=== PATIENT | female | born 1995 | race Caucasian/White ===

== ENCOUNTER 2016-09-22 19:09 | Emergency (ER) | payer MEDICAID, OTHER ==
[~2016-09-22] VITALS: Ht 165.1 cm; Wt 74.8 kg
[2016-09-22] MEDS ORDERED: IBUPROFEN 800 MG (MOTRIN) TAB PO ONE (19:30)
[2016-09-22] MEDS ORDERED: CYCLOBENZAPRINE 10 MG (FLEXERIL) TAB PO SCH (19:30)
--- NOTE | 2016-09-22 19:34 | ED Back Pain ---
General Chief Complaint: Back Problems Stated Complaint: BACK PAIN Source of Information: Patient Exam Limitations: No Limitations History of Present Illness Time Seen by Provider: 19:32 Initial Comments To ER with low back pain. This began about a day ago when she was getting up off the couch. She felt a sharp sudden pain in the right low back. The pain has since spread all the way across to the lower left side of her back. She states intermittently it does radiate down both of her legs. She has not had any fevers or chills or loss of bowel or bladder control or loss of sensation of her genitals. She's never had this pain before. She does also report urinary burning and nausea. Location: Lumbar Spine, Paraspinous Muscles Severity: Moderate Associated Symptoms: No muscle spasms, No fever, No weakness, tingling in legs/ feet, lower back pain Allergies and Home Medications Allergies Coded Allergies: No Known Drug Allergies (Unverified , 09/22/16) Constitutional: see HPI, No chills, No fever EENTM: see HPI Respiratory: no symptoms reported Cardiovascular: no symptoms reported Gastrointestinal: nausea Genitourinary: no symptoms reported Musculoskeletal: see HPI, back pain Skin: no symptoms reported Psychiatric/Neurological: No Symptoms Reported Past Detxhcb-Eyadyc-Uoslnn Hx Patient Social History Alcohol Use: Occasionally Uses Recreational Drug Use: No Smoking Status: Never a Smoker Recent Foreign Travel: No Contact w/Someone Who Travel: No Recent Hopitalizations: No Surgeries Surgeries: Adenoidectomy, Tonsillectomy Physical Exam Vital Signs Vital Sign - Last 12Hours 09/22/16 19:23 Temp 98.3 Pulse 103 Resp 20 B/P (MAP) 144/92 Pulse Ox 99 O2 Delivery Room Air Capillary Refill : General Appearance: No Apparent Distress, WD/WN HEENT: PERRL/EOMI, TMs Normal Neck: Full Range of Motion, Normal Inspection Cardiovascular: Regular Rate, Rhythm, Normal Peripheral Pulses Respiratory: Normal Breath Sounds, No Accessory Muscle Use, No Respiratory Distress Gastrointestinal: Normal Bowel Sounds, Non Tender, Soft Extremity: Normal Capillary Refill, Normal Inspection Neurologic/Psychiatric: Alert, Oriented x3, No Motor/Sensory Deficits Skin: Normal Color, Warm/Dry Progress/Results/Core Measures Results/Orders Lab Results Laboratory Tests Test 09/22/16 19:31 Range/Units Urine Color YELLOW Urine Clarity VERY CLOUDY H Urine pH 6 5-9 Urine Specific [place] 1.020 1.016-1.022 Urine Protein 1+ H NEGATIVE Urine Glucose (UA) NEGATIVE NEGATIVE Urine Ketones NEGATIVE NEGATIVE Urine Nitrite NEGATIVE NEGATIVE Urine Bilirubin NEGATIVE NEGATIVE Urine Urobilinogen 1 NORMAL MG/DL Urine Leukocyte Esterase 3+ H NEGATIVE Urine RBC (Auto) NEGATIVE NEGATIVE Urine RBC NONE /HPF Urine WBC 10-25 H /HPF Urine Squamous Epithelial Cells 10-25 H /HPF Urine Crystals NONE /LPF Urine Bacteria MODERATE H /HPF Urine Casts NONE /LPF Urine Mucus SMALL H /LPF Urine Culture Indicated YES My Orders Orders - HUSSAIN CULVER APRN Urine Bedside (09/22/16 19:30) Ua Culture If Indicated (09/22/16 19:30) Ibuprofen Tablet (Motrin Tablet) (09/22/16 19:30) Cyclobenzaprine Tablet (Flexeril Tablet) (09/22/16 19:30) Urine Culture (09/22/16 19:31) Medications Given in ED Current Medications Medications Dose Ordered Sig/Kyle Route Start Time Stop Time Status Last Admin Dose Admin Ibuprofen 800 mg ONCE ONCE PO 09/22/16 19:30 09/22/16 19:32 DC 09/22/16 19:38 800 MG Vital Signs/I&O Vital Sign - Last 12Hours 09/22/16 19:23 Temp 98.3 Pulse 103 Resp 20 B/P (MAP) 144/92 Pulse Ox 99 O2 Delivery Room Air Departure Impression Impression: Primary Impression: Back pain Additional Impression: Urinary tract infection Disposition: 01 HOME, SELF-CARE Condition: Stable Departure-Patient Inst. Decision time for Depature: 19:59 Referrals: [facility] (PCP) Primary Care Physician Patient Instructions: Low Back Pain (DC), Urinary Tract Infection, Adult (DC) Add. Discharge Instructions: 1. Return to ER for any concerns such as fever or vomiting 2. Follow-up with your doctor next week 3. Antibiotics as directed. Tylenol and Motrin for pain All discharge instructions reviewed with patient and/or family. Voiced understanding. Scripts Sulfamethoxazole/Trimethoprim (Bactrim Ds Tablet) 1 Each Tablet 1 EACH PO BID, #10 TAB Prov: HUSSAIN CULVER APRN 09/22/16 HUSSAIN CULVER APRN Sep 22, 2016 19:34
[2016-09-22 19:41] LABS: BILIRUBIN,URINE NEGATIVE (NEGATIVE); KETONES,URINE NEGATIVE (NEGATIVE); LEUKOCYTE ESTERASE ,URINE 3+ (NEGATIVE); NITRITE,URINE NEGATIVE (NEGATIVE); PH,URINE 6 (5-9); PROTEIN,URINE 1+ (NEGATIVE); UROBILINOGEN,URINE 1 MG/DL (NORMAL)
[2016-09-22] MEDS ORDERED: CEPHALEXIN 250 MG (KEFLEX) CAP PO ONE ×2 (19:59→20:15)
[2016-09-22] MEDS ORDERED: TRIM/SULFAMETH 160/800 (SEPTRA DS) TAB PO ONE (20:00)
[2016-09-22] MEDS ORDERED: SULF1TAB35 PO (20:00)
[2016-09-22 20:05] VITALS: BP 0/0
[2016-09-22] MEDS ORDERED: CEPH-507 PO (20:05)
== END 2016-09-22 20:04 | disposition home or self-care (01) ==
LOC: ER 19:12
DX: M54.5 Low back pain (principal); N39.0 Urinary tract infection, site not specified; Z90.89 Acquired absence of other organs
CPT/HCPCS: 81000; 84703; 87088; 99283

== ENCOUNTER 2016-12-23 12:41 | Emergency (ER) | payer MEDICAID ==
[~2016-12-23] VITALS: Ht 165.1 cm; Wt 77.1 kg
[~2016-12-23 12:41] MED LIST: CEPH-507 PO; SULF1TAB35 PO
--- OUTSIDE RECORDS SUMMARY | 2016-12-23 12:48 | XMS REPORT | Continuity of Care Document ---
Author Author [employer] Organization [facility] Address Unknown Phone Unavailable Care Team Providers Care [employer] Name Role Phone [employer] Unavailable Unavailable Problems Problem Status Onset Date Classification Date Reported Comments Source Intestinal infection due to other organism, not elsewhere classified 07/10/2014 Diagnosis 07/14/2014 [facility] Acute upper respiratory infections of unspecified site 07/02/2014 Diagnosis 07/06/2014 [facility] Cough 07/02/2014 Diagnosis 07/06/2014 [facility] No data available for this section Problem 07/14/2014 [facility] Medications Medication Details Route Status Patient Instructions Ordering Provider Order Date Source No Known Medications No known medications Active [facility] Allergies, Adverse Reactions, Alerts Substance Category Reaction Severity Reaction type Status Date Reported Comments Source sulfa drugs Assertion Drug allergy [facility] Care Immunizations Immunization Date Given Site Status Last Updated Comments Source No data available for this section No data available for this section [facility] Results Vital Signs Encounters Location Location Details Encounter Type Encounter Number Reason For Visit Attending Provider ADM Date DC Date Status Source [facility] [id number] Jean Garcia 07/02/2014 07/03/2014 [facility] [id number] Sonya Quinteros 07/10/2014 07/11/2014 [facility] Procedures Procedure Code Date Perfomer Comments Source No data available for this section [facility] none [facility] Plan of Care Social History Assessment and Plan Family History Value Date Source Advance Directives Order Name Results Value Date Source
--- OUTSIDE RECORDS SUMMARY | 2016-12-23 12:49 | XMS REPORT | Continuity of Care Document ---
Author Author [facility] Address Unknown Phone Unavailable Allergies Medications Problems Date Dx Coded Attending Type Code Diagnosis Diagnosed By 11/03/2013 MARCOS BLACK APRN V70.5 EXAM - PRE-EMPLOYMENT Procedures Results Encounters ACCT No. Visit Date/Time Discharge Status Pt. Type Provider Facility Loc./Unit Complaint [id number] 11/03/2013 09:56:00 11/03/2013 23: 59:59 CLS Outpatient MARCOS BLACK APRN
[2016-12-23] MEDS ORDERED: PREN-53 PO (13:20)
[2016-12-23 13:51] LABS: BILIRUBIN,URINE NEGATIVE (NEGATIVE); KETONES,URINE NEGATIVE (NEGATIVE); LEUKOCYTE ESTERASE ,URINE 3+ (NEGATIVE); NITRITE,URINE NEGATIVE (NEGATIVE); PH,URINE 5 (5-9); PROTEIN,URINE 1+ (NEGATIVE); UROBILINOGEN,URINE NORMAL (NORMAL)
[2016-12-23 14:02] LABS: SQUAMOUS EPITHELIAL CELL,UR 25-50 /HPF; WBC,URINE >100 /HPF
[2016-12-23] MEDS ORDERED: ACETAMINOPHEN 325 MG TABLET/CAPLET (TYLENOL) PO STA (14:32)
--- NOTE | 2016-12-23 15:22 | ED Abdominal Pain ---
General Chief Complaint: -Female Stated Complaint: CRAMPING/SPOTTING/APPROX 9 WKS PG Nursing Triage Note: c/o bilateral lower abdomen cramping and spotting since yesterday. Sepsis Screen: No Definite Risk History of Present Illness Time Seen By Provider: 13:45 Initial Comments 21-year-old female reports to be approximately 12 weeks gestation. Her LMP was October 03, 2016. She reports being sexually active yesterday evening , since then she has had some spotting. It is not enough to require wearing a pad. She mainly notices when using the restroom to urinate or have a bowel movement. She reports mild lower abdominal cramping. She has taken no medications to this point. This is her first . She has not seen her OB doctor yet, she is taking vitamins. She does report spotting in early October as well she was not evaluated for this. Timing/Duration: 1-2 Days Severity/Quality: Mild Location: Suprapubic Radiation: No Radiation Activities at Onset: None Associated Symptoms: Denies Symptoms Allergies and Home Medications Allergies Coded Allergies: No Known Drug Allergies (Unverified , 09/22/16) Home Medications Nitrofurantoin Monohyd/M-Cryst 100 Mg Capsule, 1 TAB PO BID, #10 Ref 0 Prescribed by: TAPAN LADD on 12/23/16 1549 [id number]/Iron Fumarate/FA/Dss 1 Each Tablet, 1 EACH PO, (Reported) Review of Systems Constitutional: no symptoms reported, see HPI Gastrointestinal: See HPI, Abdominal Pain Genitourinary: See HPI, Hematuria All Other Systems Reviewed Negative Unless Noted: Yes Past Txbazqr-Xwzlzx-Yvjkmp Hx Patient Social History Alcohol Use: Denies Use Recreational Drug Use: No Smoking Status: Never a Smoker Recent Foreign Travel: No Contact w/Someone Who Travel: No Recent Infectious Disease Expo: No Recent Hopitalizations: No Physical Abuse: No Sexual Abuse: No Surgeries History of Surgeries: Yes Surgeries: Adenoidectomy, Tonsillectomy Respiratory History of Respiratory Disorde: No Cardiovascular History of Cardiac Disorders: No Neurological History of Neurological Disord: No Reproductive System : Yes Expected Date of Delivery: July 11, 2017 Last Menstrual Period: Oct 04, 2016 Hx : 1 Hx Para: 0 Hx Total # of Abortions (Spona: 0 Genitourinary History of Genitourinary Disor: No Gastrointestinal History of Gastrointestinal Di: No Musculoskeletal History of Musculoskeletal Dis: No Endocrine History of Endocrine Disorders: No HEENT History of HEENT Disorders: No Cancer History of Cancer: No Psychosocial History of Psychiatric Problem: No Suicide Risk Score: 0 Integumentary History of Skin or Integumenta: No Reviewed Nursing Assessment Reviewed/Agree w Nursing PMH: Yes Physical Exam Vital Signs VS - Last 72 Hours, by Label 12/23/16 12/23/16 13:17 15:55 Temp 98.0 98.0 Pulse 110 110 Resp 18 18 B/P (MAP) 125/74 Pulse Ox 98 98 Capillary Refill : Less Than 3 Seconds General Appearance: WD/WN, no apparent distress Neck: non-tender, full range of motion, supple Respiratory: chest non-tender, lungs clear, normal breath sounds Cardiovascular: normal peripheral pulses, regular rate, rhythm, no edema, no JVD Gastrointestinal: normal bowel sounds, soft, No distended (mild tenderness, suprapubic), No guarding, No rebound, tenderness Extremities: normal range of motion, non-tender, normal inspection, normal capillary refill Back: normal inspection, no CVA tenderness, no vertebral tenderness Neurologic/Psychiatric: no motor/sensory deficits, alert, normal mood/affect, oriented x 3 Skin: normal color, warm/dry Progress/Results/Core Measures Results/Orders Lab Results Laboratory Tests Test 12/23/16 13:40 Range/Units Urine Color YELLOW Urine Clarity VERY CLOUDY H Urine pH 5 5-9 Urine Specific [place] 1.020 1.016-1.022 Urine Protein 1+ H NEGATIVE Urine Glucose (UA) NEGATIVE NEGATIVE Urine Ketones NEGATIVE NEGATIVE Urine Nitrite NEGATIVE NEGATIVE Urine Bilirubin NEGATIVE NEGATIVE Urine Urobilinogen NORMAL NORMAL MG/DL Urine Leukocyte Esterase 3+ H NEGATIVE Urine RBC (Auto) 5+ H NEGATIVE Urine RBC 5-10 H /HPF Urine WBC >100 H /HPF Urine Squamous Epithelial Cells 25-50 H /HPF Urine Crystals PRESENT H /LPF Urine Amorphous Sediment MOD ALBERT URATES H /LPF Urine Bacteria FEW H /HPF Urine Casts NONE /LPF Urine Mucus NEGATIVE /LPF Urine Culture Indicated YES My Orders Orders - TAPAN LADD Ua Culture If Indicated (12/23/16 13:42) Urine Bedside (12/23/16 13:42) Urine Culture (12/23/16 13:40) Acetaminophen Tablet/Caplet (Tylenol T (12/23/16 14:32) Us Ob Single Fetus<14 [id number] (12/23/16 14:32) Vital Signs/I&O Vital Sign - Last 12Hours 12/23/16 12/23/16 13:17 15:55 Temp 98.0 98.0 Pulse 110 110 Resp 18 18 B/P (MAP) 125/74 Pulse Ox 98 98 Blood Pressure Mean: 91 Point of Care Testing Urine -Bedside: Positive Progress Note : Time: 13:45 Progress Note Initial evaluation, urine positive. 1430 recommended OB ultrasound and Tylenol 650 milligrams orally. 1515 OB ultrasound results discussed with the patient. Recommendation for one week repeat ultrasound were discussed, she has an initial OB evaluation in one week Dr. Moreno at [facility]. Stressed the importance to have vaginal rest until her appointment with Dr. Moreno, she verbalized understanding of this. Diagnostic Imaging Diagonstic Imaging: Ultrasound Plain Films/CT/US/NM/MRI: abdomen Comments NAME: KAREN ROSS [facility] REC#: [id number] PHYSICIAN: TAPAN LADD CC: TAPAN LADD; EMIL IRWIN MD Page 2 of 2 RADIOLOGY REPORT VIA [place], [place] CC: TAPAN LADD; EMIL IRWIN MD Page 1 of 2 RADIOLOGY REPORT NAME: KAREN ROSS [facility] REC#: [id number] PT STATUS: DEP ER : 1995 PHYSICIAN: TAPAN LADD ADMIT DATE: 12/23/16/ER Signed Date of Exam: 12/23/16 US OB SINGLE FETUS<14 [id number] First trimester OB ultrasound. INDICATION: Bleeding/cramping. FINDINGS: There is a an intrauterine with a yolk sac seen within gestational sac with sac diameter of 1 cm. This corresponds to 5 weeks and 5 days of gestation. NORIS would correspond with 08/20/2017. The sac is located along the left side of the endometrium. Additional images were performed to specifically evaluate the thickness of the myometrium around the gestational sac and it appears to be more than 5 mm. The sac does appear to be within the endometrium and does not appear to be . This is believed to be slightly eccentric normal within the endometrial cavity with no evidence of cornual ectopic . The left ovary is seen with 1.8 cm dominant corpus luteum cysts. IMPRESSION: Single intrauterine with a yolk sac seen. Although the sac appears to be within the left side of the endometrium, additional imaging evaluation demonstrates at least 5 mm of myometrium around it and the sac is inseparable from the endometrium. It is felt to be located within the upper left aspect of the endometrium and not a cornual ectopic . A followup exam in one week is suggested to reevaluate the position of the and to ensure normal progression and development of an embryo. Dictated by: Dictated on workstation # [id number] Dict: 12/23/16 1508 Trans: 12/23/16 1720 Interpreted by: EMIL IRWIN MD Electronically signed by: EMIL IRWIN MD 12/23/16 1720 Reviewed: Discussed w/Radiologist Departure Impression Impression: Primary Impression: Vaginal bleeding before 22 weeks gestation Additional Impressions: Intrauterine Urinary tract infection Qualified Codes: N30.01 - Acute cystitis with hematuria Disposition: HOME, SELF-CARE Condition: Stable Departure-Patient Inst. Decision time for Depature: 15:15 Referrals: [facility] (PCP) Primary Care Physician WILFRED MORENO DO (Family) Primary Care Physician Patient Instructions: Bleeding With (DC) Add. Discharge Instructions: Complete vaginal rest. Activity as tolerated. Use pad in her underwear, no tampons. Tylenol 650 mg every 6 hours as needed for pain/cramping. Return to emergency department for increased vaginal bleeding with pain not relieved with Tylenol, fever greater than 101, or new problems. Keep appointment with Dr. Moreno for December 30. Follow-up at [facility] for new problems. All discharge instructions reviewed with patient and/or family. Voiced understanding. Scripts Nitrofurantoin Monohyd/M-Cryst (Macrobid 100 mg Capsule) 100 Mg Capsule 1 TAB PO BID, #10 CAP 0 Refills Prov: TAPAN LADD 12/23/16 Copy Copies To 1: WILFRED MORENO DO Copies To 2: MICHAEL TINSLEY MD, AMY ARNP Dec 23, 2016 15:22
[2016-12-23] MEDS ORDERED: NITR-65 PO (15:49)
[2016-12-23 15:55] VITALS: BP 125/74
--- NOTE | 2016-12-23 15:57 | Diagnostic Imaging Report ---
First trimester OB ultrasound. INDICATION: Bleeding/cramping. FINDINGS: There is a an intrauterine with a yolk sac seen within gestational sac with sac diameter of 1 cm. This corresponds to 5 weeks and 5 days of gestation. NORIS would correspond with 08/20/2017. The sac is located along the left side of the endometrium. Additional images were performed to specifically evaluate the thickness of the myometrium around the gestational sac and it appears to be more than 5 mm. The sac does appear to be within the endometrium and does not appear to be . This is believed to be slightly eccentric normal within the endometrial cavity with no evidence of cornual ectopic . The left ovary is seen with 1.8 cm dominant corpus luteum cysts. IMPRESSION: Single intrauterine with a yolk sac seen. Although the sac appears to be within the left side of the endometrium, additional imaging evaluation demonstrates at least 5 mm of myometrium around it and the sac is inseparable from the endometrium. It is felt to be located within the upper left aspect of the endometrium and not a cornual ectopic . A followup exam in one week is suggested to reevaluate the position of the and to ensure normal progression and development of an embryo. Dictated by: Dictated on workstation # [id number]
== END 2016-12-23 15:53 | disposition home or self-care (01) ==
LOC: EDUNIT# 12:41 → ER 12:44
DX: O20.9 Hemorrhage in early pregnancy, unspecified (principal); O23.41 Unspecified infection of urinary tract in pregnancy, first trimester; Z90.89 Acquired absence of other organs; Z3A.12 12 weeks gestation of pregnancy
CPT/HCPCS: 76801; 81000; 84703; 87088; 99282

== ENCOUNTER → 2017-01-11 | Outpatient (CLI) | payer MEDICAID ==
[~2017-01-11] MED LIST changes: +CLIN300C11 PO; +NITR-65 PO; +PREN-53 PO
--- NOTE | 2017-01-11 10:36 | Diagnostic Imaging Report ---
First trimester OB ultrasound. INDICATION: Dating] femoral normal Comparison 12/23/16. FINDINGS: There is a normal-appearing single intrauterine . An embryo is seen with cardiac activity at 174 beats per minute. The crown-rump length is at 8 weeks and 3 days. NORIS is 08/20/17. The is in normal position with adequate myometrium appears to be surrounding the gestational sac. The ovaries are from obscured by bowel gas. IMPRESSION: Live single intrauterine . Dictated by: Dictated on workstation # [id number]
== END ==
LOC: RAD 09:57
PROVIDERS: ATTEND Family Medicine
DX: Z36.87 Encounter for antenatal screening for uncertain dates (principal); Z3A.08 8 weeks gestation of pregnancy
CPT/HCPCS: 76801

== ENCOUNTER → 2017-03-28 | Outpatient (CLI) | payer MEDICAID ==
--- NOTE | 2017-03-28 11:28 | Diagnostic Imaging Report ---
INDICATION: Size and dates. TECHNIQUE: Multiple real-time grayscale images were obtained over the gravid uterus. COMPARISON: 01/11/2017. FINDINGS: There is a single living intrauterine in a variable presentation. The biometry correlates with gestational age of 19 weeks 5 days. The anatomical survey is unremarkable. The heart rate is 140 beats per minute and regular. The placenta is fundal on left. There is no previa or abruption. Cervical length is 4.5 cm. Biometrical measurements are as follows: Biparietal 4.78 cm, age 20 weeks 4 days. Head circumference 16.58 cm, age 19 weeks 2 days. Abdominal circumference 14.21 cm, age 19 weeks 4 days. Femur length 2.96 cm, age 19 weeks 1 days. Sonographic estimate age: 19 weeks 5 days. Sonographic estimated date of delivery: 08/17/2017. Estimated Weight: 290 gm (+/- 42 gm). LMP percentile: 52%. heart rate: 140 beats per minute. number: 1 of 1. IMPRESSION: Single living intrauterine with sonographically estimated gestational age of 19 weeks 5 days with an estimated date of confinement of August 17, 2017. Unremarkable anatomical survey. Dictated by: Dictated on workstation # [id number]
== END ==
LOC: RAD 10:00
PROVIDERS: ATTEND Family Medicine
DX: Z34.92 Encounter for supervision of normal pregnancy, unspecified, second trimester (principal); Z3A.19 19 weeks gestation of pregnancy
CPT/HCPCS: 76805

== ENCOUNTER → 2017-06-23 | Outpatient (CLI) | payer SELFPAY ==
[~2017-06-23] MED LIST changes: +CETI-343 PO; +FERR325T18 PO; +IBUP-1773 PO
[2017-06-23 08:36] LABS: BASOPHILS % (AUTO) 0 % (0-10); EOSINOPHILS # (AUTO) 0.2 10^3/uL (0.0-0.3); EOSINOPHILS % (AUTO) 1 % (0-10); HEMATOCRIT 34 % (35-52); HEMOGLOBIN 11.3 G/DL (11.5-16.0); LYMPHOCYTES # (AUTO) 3.2 X 10^3 (1.0-4.0); LYMPHOCYTES % (AUTO) 20 % (12-44); MEAN CORPUSCULAR HEMOGLOBIN 27 PG (25-34); MEAN CORPUSCULAR HGB CONC 33 G/DL (32-36); MEAN CORPUSCULAR VOLUME 82 FL (80-99); MEAN PLATELET VOLUME 8.4 FL (7.4-10.4); MONOCYTES # (AUTO) 1.2 X 10^3 (0.0-1.0); MONOCYTES % (AUTO) 8 % (0-12); NEUTROPHILS # (AUTO) 11.2 X 10^3 (1.8-7.8); NEUTROPHILS % (AUTO) 71 % (42-75); PLATELET COUNT 346 10^3/uL (130-400); RED BLOOD COUNT 4.12 10^6/uL (4.35-5.85); RED CELL DISTRIBUTION WIDTH 14.1 % (10.0-14.5); WHITE BLOOD COUNT 15.9 10^3/uL (4.3-11.0)
[2017-06-23 09:24] LABS: BAND NEUTROPHILS 5 %; BASOPHILS % (MANUAL) 1 %; EOSINOPHILS % (MANUAL) 1 %; LYMPHOCYTES % (MANUAL) 28 %; METAMYELOCYTES % 1 %; MONOCYTES % (MANUAL) 5 %; MYELOCYTES % 1 %; NEUTROPHILS % (MANUAL) 58 %; RBC MORPH NORMAL
== END ==
LOC: LAB 07:11
PROVIDERS: ATTEND Family Medicine
DX: O99.810 Abnormal glucose complicating pregnancy (principal)
CPT/HCPCS: 36415; 82951; 82952; 82962; 85007; 85027

== ENCOUNTER 2017-08-16 15:50 | Inpatient (IN) | payer MEDICAID ==
[~2017-08-16] VITALS: Ht 160 cm; Wt 98.5 kg
[2017-08-16] VITALS (11 sets, daily range): BP systolic 122–151; BP diastolic 78–100
[~2017-08-16 15:50] MED LIST changes: -CETI-343 PO; -FERR325T18 PO; -IBUP-1773 PO
--- OUTSIDE RECORDS SUMMARY | 2017-08-16 16:11 | XMS REPORT ---
Author Author JASON JONES [facility] Address [address] [place] [address] Care Team Providers Care Chef Under Name Role Phone JONESMAAMEA Unavailable PROBLEMS Type Condition ICD9-CM Code CJI98-OE Code Onset Dates Condition Status SNOMED Code Problem Other infections with a predominantly sexual mode of transmission complicating , first trimester O98.311 Active 669668507 Problem Chlamydial infection A74.9 Active 437254673 Problem Abnormal glucose tolerance affecting , antepartum O99.810 Active 44389105 Problem Anxiety disorder, unspecified F41.9 Active 167109182 Problem Rh negative state in antepartum period O09.899 Active 368143093 ALLERGIES Substance Reaction Event Type Date Status Sulfa (sulfonamide Antibiotics) Unknown Non Drug Allergy Nov, Active ENCOUNTERS Encounter Location Date Diagnosis [facility] [id number] [place] [address] 77372- 3139 Jul, [facility] [id number] [place] [address] 30135- 4953 Jul, [facility] [address] [address] 9005 Jul, [facility] [id number] [place] [address] 68904- 7017 Jul, [facility] [id number] [place] [address] 08698- 2651 June, [facility] [id number] [place] [address] 58237- 3976 June, 34 weeks gestation of Z3A.34 and care in third trimester Z34.93 [facility] [id number] [place] [address] 64193- 8324 May, care in third trimester Z34.93 ; Encounter for immunization Z23 and 31 weeks gestation of Z3A.31 [place] [id number] [place] [address] 42061- 3577 27 May, 2017 [place] [place] [id number] [place] [address] 33819- 3290 May, Abnormal glucose tolerance affecting , antepartum O99.810 [facility] [id number] [place] [address] 22393- 5998 May, Rh negative state in antepartum period O09.899 [facility] [id number] [place] [address] 23086- 4962 17 May, 2017 Normal in second trimester Z34.92 [facility] [id number] [place] [address] 33027- 1998 May, [facility] [id number] [place] [address] 27049- 0402 May, Normal in second trimester Z34.92 ; Rh negative state in antepartum period O09.899 and 29 weeks gestation of Z3A.29 [place] [address] [place] [address] 63366- 7636 04 May, 2017 [place] [address] [place] [address] 14022- 4971 May, Burning with urination R30.0 and Urinary tract infection in mother during third trimester of O23.43 [place] [address] [place] [address] 56529- 3640 Apr, care in second trimester Z34.92 ; Diabetes mellitus screening Z13.1 and 25 weeks gestation of Z3A.25 [facility] [address] [place] [address] 54900- 7213 16 Mar, 2017 Normal in second trimester Z34.92 ; Chlamydial infection A74.9 and 21 weeks gestation of Z3A.21 [place] [address] [address]- 5233 Feb, Normal in second trimester Z34.92 ; Chlamydial infection A74.9 ; 17 weeks gestation of Z3A.17 ; Unspecified abdominal pain R10.9 and Other specified related conditions, unspecified trimester O26.899 [facility] [address] [address]- 9194 18 Feb, 2017 Encounter for dental examination and cleaning without abnormal findings Z01.20 [facility] [id number] [address]- 6170 04 Feb, 2017 [place] [id number] [place] [address] 18419- 6347 Feb, [facility] [id number] [place] [address] 42953- 4378 Jan, [place] [id number] [place] [address] 16457- 3407 Jan, Vaginal candidiasis B37.3 [facility] [id number] [address]- 4083 Jan, [place] [id number] [place] [address] 88854- 4005 Jan, Normal in second trimester Z34.92 and 13 weeks gestation of Z3A.13 [facility] [id number] [address]- 5152 Jan, Screening for deficiency anemia Z13.0 [facility] [address] [address]- 1720 Dec, [place] [id number] [place] [address] 26154- 3925 Dec, [facility] [address] [address]- 8007 Dec, [place] [id number] [place] [address] 16608- 6201 Dec, Normal , first Z34.00 and 7 weeks gestation of Z3A.01 [facility] [id number] [place] [address] 09588- 8966 Nov, Encounter for test, result unknown Z32.00 [facility] [id number] [place] [address] 71794- 8634 Nov, [facility] [address] 03247- 8174 June, Positive test Z32.01 [facility] [id number] [place] [address] 32520 -4373 Apr, Allergic rhinitis J30.9 [facility] [id number] [place] [address] 67014- 2587 17 Mar, 2015 Depressed F32.9 and Grief F43.20 [facility] [address] 87334- 9624 Mar, Depressed F32.9 and Grief F43.20 [facility] [id number] [place] [address] 46126- 7086 Mar, Adjustment disorder with depressed mood F43.21 and Anxiety disorder, unspecified F41.9 [facility] [id number] [place] [address] 96945- 2044 May, [facility] [id number] [place] [address] 43093- 8052 May, [facility] [id number] [place] [address] 34086- 4613 Feb, [facility] [address] 66086- 8590 Feb, [facility] [id number] [place] [address] 99387- 7313 Oct, [facility] [address] 59661- 5526 Oct, IMMUNIZATIONS No Known Immunizations SOCIAL HISTORY Never Assessed REASON FOR VISIT OB HX PLAN OF CARE VITAL SIGNS MEDICATIONS Medication Instructions Dosage Frequency Start Date End Date Duration Status CVS 28-0.8 MG as directed June, Active RESULTS No Results PROCEDURES No Known procedures INSTRUCTIONS MEDICATIONS ADMINISTERED No Known Medications MEDICAL (GENERAL) HISTORY Type Description Date Medical History Dave mountain spotted fever treated in 2012 Medical History got bit by brown pam spider/ as child Medical History NORIS is August 21, 2107 Surgical History tonsilectomy and adenoidectomy childhood Hospitalization History Went to ER after finance and was put in behavioral health for 24 hours 03/07/15 Hospitalization History brown recluse bite 02/28/2011
--- OUTSIDE RECORDS SUMMARY | 2017-08-16 16:11 | XMS REPORT ---
Author Author HYACINTH CLAY [facility] Address [address] [place] [address] Care Team Providers Care Talent Acquisition Associate Name Role Phone CLAY CLAROS Unavailable PROBLEMS Type Condition ICD9-CM Code [id number] Code Onset Dates Condition Status SNOMED Code Problem Other infections with a predominantly sexual mode of transmission complicating , first trimester O98.311 Active 594844098 Problem Chlamydial infection A74.9 Active 613780163 Problem Abnormal glucose tolerance affecting , antepartum O99.810 Active 02899015 Problem Anxiety disorder, unspecified F41.9 Active 331892984 Problem Rh negative state in antepartum period O09.899 Active 712331782 ALLERGIES Substance Reaction Event Type Date Status Sulfa (sulfonamide Antibiotics) Unknown Non Drug Allergy Jan, Active ENCOUNTERS Encounter Location Date Diagnosis [place] [address] [place] [address] 76346- 0382 Jul, [place] [id number] [place] [address] 27263- 6737 Jul, [place] [id number] [place] [address] 67420- 6993 08 Jul, 2017 Third trimester Z34.93 and 37 weeks gestation of Z3A.37 [place] [address] [place] [address] 53112- 2576 Jul, screening for streptococcus B Z36.85 ; care, first in third trimester Z34.03 and 36 weeks gestation of Z3A.36 [place] [id number] [place] [address] 88022- 7093 June, [place] [id number] [place] [address] 86177- 8551 June, [facility] [address] [address]- 0803 June, 34 weeks gestation of Z3A.34 and care in third trimester Z34.93 [facility] [address] [address]- 6872 May, [place] [id number] [place] [address] 17443- 7880 May, care in third trimester Z34.93 ; Encounter for immunization Z23 and 31 weeks gestation of Z3A.31 [place] [id number] [place] [address] 65615- 4341 May, Abnormal glucose tolerance affecting , antepartum O99.810 [place] [address], [place] [address]- 4352 May, Rh negative state in antepartum period O09.899 [place] [id number] [place] [address] 83866- 3835 May, Normal in second trimester Z34.92 [place] [address] [place] [address] 29510- 2714 May, [place] [address] [address]- 7955 May, Normal in second trimester Z34.92 ; Rh negative state in antepartum period O09.899 and 29 weeks gestation of Z3A.29 [place] [address], [place] [address]- 9428 May, [place] [id number] [place] [address] 85023- 6390 May, Burning with urination R30.0 and Urinary tract infection in mother during third trimester of O23.43 [place] [address] [address]- 9297 Apr, [place] [id number] [place] [address] 15225- 2081 16 Apr, 2017 care in second trimester Z34.92 ; Diabetes mellitus screening Z13.1 and 25 weeks gestation of Z3A.25 [place] [id number] [place] [address] 79530- 4668 16 Mar, 2017 Normal in second trimester Z34.92 ; Chlamydial infection A74.9 and 21 weeks gestation of Z3A.21 [place] [id number] [place] [address] 02316- 9101 19 Feb, 2017 Normal in second trimester Z34.92 ; Chlamydial infection A74.9 ; 17 weeks gestation of Z3A.17 ; Unspecified abdominal pain R10.9 and Other specified related conditions, unspecified trimester O26.899 [place] [id number] [place] [address] 42607- 5452 18 Feb, 2017 Encounter for dental examination and cleaning without abnormal findings Z01.20 [place] [id number] [place] [address] 93252- 4594 04 Feb, 2017 [place] [id number] [place] [address] 49598- 8399 Feb, [place] [id number] [place] [address] 09159- 4719 Jan, [place] [id number] [place] [address] 32090- 9983 Jan, Vaginal candidiasis B37.3 [place] [id number] [place] [address] 38632- 8307 Jan, [place] [id number] [place] [address] 48009- 8078 Jan, Normal in second trimester Z34.92 and 13 weeks gestation of Z3A.13 [place] [id number] [place] [address] 37498- 9769 Jan, Screening for deficiency anemia Z13.0 [place] [address], [place] [address]- 9760 Dec, [facility] [id number] [place] [address] 33897- 8448 Dec, [facility] [address], [place] [address]- 4886 Dec, [facility] [id number] [place] [address] 12188- 2739 Dec, Normal , first Z34.00 and 7 weeks gestation of Z3A.01 [facility] [id number] [place] [address] 99660- 2832 Nov, Encounter for test, result unknown Z32.00 [facility] [id number] [place] [address] 85029- 6567 Nov, [facility] [id number] [place] [address] 30216- 5704 June, Positive test Z32.01 [facility] [address] [place] [address] 58041 -6787 Apr, Allergic rhinitis J30.9 [facility] [id number] [place] [address] 10815- 8794 17 Mar, 2015 Depressed F32.9 and Grief F43.20 [facility] [id number] [place] [address] 00468- 2643 Mar, Depressed F32.9 and Grief F43.20 [facility] [address] [place] [address] 99313- 0304 Mar, Adjustment disorder with depressed mood F43.21 and Anxiety disorder, unspecified F41.9 [facility] [address] [address]- 5582 May, [facility] [id number] [place] [address] 07313- 4259 May, [facility] [address] [facility] [id number] [address]- 7555 Feb, [facility] [address] [facility] [id number], [place] [address]- 4381 Feb, [facility] [address] [facility] [id number], [place] [address]- 6623 Oct, [facility] [address] [facility] [id number], [place] [address]- 3553 Oct, IMMUNIZATIONS No Known Immunizations SOCIAL HISTORY Never Assessed REASON FOR VISIT OB f/u-4 wk--tcuppettRN PLAN OF CARE Activity Details Follow Up 4 Weeks Reason: VITAL SIGNS Height 65 in 2017-02-15 Weight 183.5 lbs 2017-02-15 Temperature 97.6 degrees Fahrenheit 2017-02-15 Heart Rate 80 bpm 2017-02-15 Respiratory Rate 18 2017-02-15 BMI 30.536 kg/m2 2017-02-15 Blood pressure systolic 120 mmHg 2017-02-15 Blood pressure diastolic 82 mmHg 2017-02-15 MEDICATIONS Medication Instructions Dosage Frequency Start Date End Date Duration Status CVS 28-0.8 MG as directed June, Active RESULTS Name Result Date Reference Range UA OB DIP (IN HOUSE) 2017-02-15 Glucose negative Protein negative PROCEDURES Procedure Date Ordered Result Body Site URINE-NO MICRO Feb 15, 2017 INSTRUCTIONS MEDICATIONS ADMINISTERED No Known Medications MEDICAL (GENERAL) HISTORY Type Description Date Medical History Dave mountain spotted fever treated in 2012 Medical History got bit by brown recluse spider/ as child Medical History NORIS is August 21, 2107 Surgical History tonsilectomy and adenoidectomy childhood Hospitalization History Went to ER after finance and was put in behavioral health for 24 hours 03/07/15 Hospitalization History brown recluse bite 02/28/2011
--- OUTSIDE RECORDS SUMMARY | 2017-08-16 16:11 | XMS REPORT ---
Author Author HYACINTH CLAY [facility] Address [address] [place] [address] Care Team Providers Care Flag Maker Name Role Phone HYACINTHRADHIKA AGUILARY Unavailable PROBLEMS Type Condition ICD9-CM Code HDA32-DH Code Onset Dates Condition Status SNOMED Code Problem Other infections with a predominantly sexual mode of transmission complicating , first trimester O98.311 Active 745947870 Problem Chlamydial infection A74.9 Active 504820510 Problem Abnormal glucose tolerance affecting , antepartum O99.810 Active 17405836 Problem Anxiety disorder, unspecified F41.9 Active 382314056 Problem Rh negative state in antepartum period O09.899 Active 794846156 ALLERGIES No Information ENCOUNTERS Encounter Location Date Diagnosis [place] [id number] [place] [address] 39374- 3883 Jul, [place] [id number] [place] [address] 12045- 2000 Jul, [place] [id number] [place] [address] 09120- 2971 Jul, Third trimester Z34.93 and 37 weeks gestation of Z3A.37 [place] [id number] [place] [address] 87511- 2619 Jul, screening for streptococcus B Z36.85 ; care, first in third trimester Z34.03 and 36 weeks gestation of Z3A.36 [place] [id number] [place] [address] 02087- 9846 June, [place] [id number] [place] [address] 20241- 9094 June, [place] [address] [place] [address]- 6069 June, 34 weeks gestation of Z3A.34 and care in third trimester Z34.93 [place] [id number] [place] [address] 51318- 5111 May, [place] [id number] [place] [address] 67188- 0729 May, care in third trimester Z34.93 ; Encounter for immunization Z23 and 31 weeks gestation of Z3A.31 [place] [id number] [place] [address] 54360- 3411 May, Abnormal glucose tolerance affecting , antepartum O99.810 [place] [id number] [place] [address] 75614- 3623 May, Rh negative state in antepartum period O09.899 [place] [id number] [place] [address] 12477- 5714 May, Normal in second trimester Z34.92 [place] [id number] [place] [address] 51701- 5451 May, [place] [id number] [place] [address] 15864- 7001 May, Normal in second trimester Z34.92 ; Rh negative state in antepartum period O09.899 and 29 weeks gestation of Z3A.29 [place] [id number] [place] [address] 36080- 3405 May, [place] [id number] [place] [address] 98240- 9014 May, Burning with urination R30.0 and Urinary tract infection in mother during third trimester of O23.43 [place] [address], [place] [address]- 0450 Apr, [place] [id number] [place] [address] 40548- 4552 Apr, care in second trimester Z34.92 ; Diabetes mellitus screening Z13.1 and 25 weeks gestation of Z3A.25 [place] [id number] [place] [address] 94229- 0747 16 Mar, 2017 Normal in second trimester Z34.92 ; Chlamydial infection A74.9 and 21 weeks gestation of Z3A.21 [place] [address] 84726- 5968 19 Feb, 2017 Normal in second trimester Z34.92 ; Chlamydial infection A74.9 ; 17 weeks gestation of Z3A.17 ; Unspecified abdominal pain R10.9 and Other specified related conditions, unspecified trimester O26.899 [place] [address] 37865- 9188 18 Feb, 2017 Encounter for dental examination and cleaning without abnormal findings Z01.20 [place] [address] 61805- 9290 04 Feb, 2017 [place] [address] 75504- 6306 Feb, [place] [address] 95178- 3030 Jan, [place] [id number] [place] [address] 14275- 1976 Jan, Vaginal candidiasis B37.3 [place] [address] 64413- 9917 Jan, [place] [id number] [place] [address] 17660- 9976 Jan, Normal in second trimester Z34.92 and 13 weeks gestation of Z3A.13 [place] [id number] [place] [address] 82490- 6831 Jan, Screening for deficiency anemia Z13.[address] 62673- 8735 Dec, [facility] [id number] [place] [address] 26001- 2290 Dec, [facility] [id number] [place] [address] 16104- 2648 Dec, [facility] [address] 22010- 3692 Dec, Normal , first Z34.00 and 7 weeks gestation of Z3A.01 [facility] [address] 75108- 9883 Nov, Encounter for test, result unknown Z32.00 [place] [address] 87094- 0963 Nov, [place] [address] 09735- 6321 June, Positive test Z32.01 [facility] [address] 50265 -9542 Apr, Allergic rhinitis J30.9 [place] [address] 97565- 1079 Mar, Depressed F32.9 and Grief F43.[address] 05513- 6055 Mar, Depressed F32.9 and Grief F43.20 [place] [address] 40687- 1561 Mar, Adjustment disorder with depressed mood F43.21 and Anxiety disorder, unspecified F41.9 [place] [address] 31026- 6776 May, [place] [address] 81935- 6622 May, [place] [address] 08415- 2546 Feb, [facility] [address] [facility] [id number] [place] [address]- 2546 Feb, [facility] [address] [facility] [id number], [place] [address]- 2546 Oct, [facility] [address] [facility] [id number], [place] [address]- 2546 Oct, IMMUNIZATIONS No Known Immunizations SOCIAL HISTORY Never Assessed REASON FOR VISIT PLAN OF CARE VITAL SIGNS MEDICATIONS Unknown Medications RESULTS No Results PROCEDURES No Known procedures [...]
--- OUTSIDE RECORDS SUMMARY | 2017-08-16 16:11 | XMS REPORT ---
Author Author FRANCISANDRIYPIO Organization [facility] Address [address] [place] [address] Care Team Providers Care Food Processing Scientist Name Role Phone BLANCOPIO Holland Unavailable PROBLEMS Type Condition ICD9-CM Code TJJ00-HH Code Onset Dates Condition Status SNOMED Code Problem Other infections with a predominantly sexual mode of transmission complicating , first trimester O98.311 Active 814958488 Problem Chlamydial infection A74.9 Active 787108573 Problem Abnormal glucose tolerance affecting , antepartum O99.810 Active 70588334 Problem Anxiety disorder, unspecified F41.9 Active 334826908 Problem Rh negative state in antepartum period O09.899 Active 885044782 ALLERGIES Substance Reaction Event Type Date Status Sulfa (sulfonamide Antibiotics) Unknown Non Drug Allergy Jan, Active ENCOUNTERS Encounter Location Date Diagnosis [place] [id number] [place] [address] 60066- 4258 Jul, [place] [id number] [place] [address] 71121- 0862 Jul, [place] [id number] [place] [address] 96372- 7530 Jul, Third trimester Z34.93 and 37 weeks gestation of Z3A.37 [place] [id number] [place] [address] 43141- 7605 Jul, screening for streptococcus B Z36.85 ; care, first in third trimester Z34.03 and 36 weeks gestation of Z3A.36 [facility] [id number] [place] [address] 05329- 4197 June, [place] [id number] [place] [address] 51543- 2425 June, [place] [address] [address] 1639 June, 34 weeks gestation of Z3A.34 and care in third trimester Z34.93 [place] [address] [address]- 7717 May, care in third trimester Z34.93 ; Encounter for immunization Z23 and 31 weeks gestation of Z3A.31 [place] [id number] [place] [address] 95447- 9232 May, [place] [id number] [place] [address] 29507- 6825 May, Abnormal glucose tolerance affecting , antepartum O99.810 [place] [id number] [place] [address] 39064- 4251 May, Rh negative state in antepartum period O09.899 [place] [id number] [place] [address] 39964- 1977 May, Normal in second trimester Z34.92 [place] [id number] [place] [address] 91307- 7846 May, [place] [address], [place] [address]- 7965 May, Normal in second trimester Z34.92 ; Rh negative state in antepartum period O09.899 and 29 weeks gestation of Z3A.29 [place] [address], [place] [address]- 5762 May, [place] [id number] [place] [address] 92901- 1715 May, Burning with urination R30.0 and Urinary tract infection in mother during third trimester of O23.43 [place] [address] [address]- 0492 Apr, [place] [address] [place] [address] 8958 16 Apr, 2017 care in second trimester Z34.92 ; Diabetes mellitus screening Z13.1 and 25 weeks gestation of Z3A.25 [place] [id number] [place] [address] 44010- 3587 16 Mar, 2017 Normal in second trimester Z34.92 ; Chlamydial infection A74.9 and 21 weeks gestation of Z3A.21 [place] [id number] [place] [address] 50061- 6682 19 Feb, 2017 Normal in second trimester Z34.92 ; Chlamydial infection A74.9 ; 17 weeks gestation of Z3A.17 ; Unspecified abdominal pain R10.9 and Other specified related conditions, unspecified trimester O26.899 [place] [id number] [place] [address] 64203- 3936 18 Feb, 2017 Encounter for dental examination and cleaning without abnormal findings Z01.20 [place] [id number] [place] [address] 50230- 5905 04 Feb, 2017 [place] [id number] [place] [address] 93157- 3973 Feb, [place] [id number] [place] [address] 94901- 4881 Jan, [place] [id number] [place] [address] 95399- 1215 Jan, Vaginal candidiasis B37.3 [place] [id number] [place] [address] 03727- 7760 Jan, [place] [id number] [place] [address] 26249- 8123 Jan, Normal in second trimester Z34.92 and 13 weeks gestation of Z3A.13 [place] [id number] [place] [address] 77985- 0785 Jan, Screening for deficiency anemia Z13.0 [place] [address], [place] [address]- 4678 Dec, [facility] [id number] [place] [address] 62426- 5331 Dec, [facility] [id number] [place] [address] 57782- 6194 Dec, [facility] [id number] [place] [address] 37428- 4912 Dec, Normal , first Z34.00 and 7 weeks gestation of Z3A.01 [facility] [id number] [place] [address] 79176- 8642 Nov, Encounter for test, result unknown Z32.00 [facility] [id number] [place] [address] 95019- 0557 Nov, [facility] [id number] [place] [address] 64999- 2070 June, Positive test Z32.01 [facility] [id number] [place] [address] 48215 -7288 Apr, Allergic rhinitis J30.9 [facility] [id number] [place] [address] 43459- 4013 Mar, Depressed F32.9 and Grief F43.20 [place] [id number] [place] [address] 85552- 4745 Mar, Depressed F32.9 and Grief F43.20 [facility] [id number] [place] [address] 20507- 0852 Mar, Adjustment disorder with depressed mood F43.21 and Anxiety disorder, unspecified F41.9 [facility] [address] [place] [address] 66555- 4889 May, [facility] [id number] [place] [address] 99341- 7384 May, [place] [address] [facility] [id number] [address]- 2180 Feb, [facility] [address] [facility] [id number], [place] [address]- 3060 Feb, [facility] [address] [facility] [id number], [place] [address]- 4409 Oct, [facility] [address] [facility] [id number], [place] [address]- 2546 Oct, IMMUNIZATIONS No Known Immunizations SOCIAL HISTORY Never Assessed REASON FOR VISIT Yeast infection: itching, tenderness over past 3-4 days, denies discharge rasheed erazo PLAN OF CARE Activity Details Follow Up prn Reason: VITAL SIGNS Height 65 in 2017-02-25 Weight 182.5 lbs 2017-02-25 Temperature 97.6 degrees Fahrenheit 2017-02-25 Heart Rate 90 bpm 2017-02-25 Respiratory Rate 20 2017-02-25 BMI 30.37 kg/m2 2017-02-25 Blood pressure systolic 116 mmHg 2017-02-25 Blood pressure diastolic 66 mmHg 2017-02-25 MEDICATIONS Medication Instructions Dosage Frequency Start Date End Date Duration Status CVS 28-0.8 MG as directed June, Active Miconazole 7 2 % Vaginal Once a day at bedtime 1 application at bedtime Jan, Feb, 7 day(s) Active RESULTS No Results PROCEDURES No Known [...]
--- OUTSIDE RECORDS SUMMARY | 2017-08-16 16:11 | XMS REPORT ---
Author Author HYACINTH CLAY [facility] Address [address] [place] [address] Care Team Providers Care Lead Designer Name Role Phone HYACINTHRADHIKA AGUILARY Unavailable PROBLEMS Type Condition ICD9-CM Code BGO20-UY Code Onset Dates Condition Status SNOMED Code Problem Other infections with a predominantly sexual mode of transmission complicating , first trimester O98.311 Active 487234162 Problem Chlamydial infection A74.9 Active 346630496 Problem Abnormal glucose tolerance affecting , antepartum O99.810 Active 40225296 Problem Anxiety disorder, unspecified F41.9 Active 093289923 Problem Rh negative state in antepartum period O09.899 Active 910631365 ALLERGIES No Information ENCOUNTERS Encounter Location Date Diagnosis [place] [id number] [place] [address] 64015- 6204 Jul, [place] [id number] [place] [address] 52669- 3497 Jul, [place] [id number] [place] [address] 92567- 6885 Jul, Third trimester Z34.93 and 37 weeks gestation of Z3A.37 [place] [id number] [place] [address] 60146- 2711 Jul, screening for streptococcus B Z36.85 ; care, first in third trimester Z34.03 and 36 weeks gestation of Z3A.36 [place] [id number] [place] [address] 13832- 6637 June, [place] [id number] [place] [address] 40698- 2172 June, [place] [address] [place] [address]- 4862 June, 34 weeks gestation of Z3A.34 and care in third trimester Z34.93 [place] [id number] [place] [address] 92817- 3232 May, [place] [id number] [place] [address] 66673- 2563 May, care in third trimester Z34.93 ; Encounter for immunization Z23 and 31 weeks gestation of Z3A.31 [place] [id number] [place] [address] 10148- 7905 May, Abnormal glucose tolerance affecting , antepartum O99.810 [place] [id number] [place] [address] 75406- 2142 May, Rh negative state in antepartum period O09.899 [place] [id number] [place] [address] 84689- 8311 May, Normal in second trimester Z34.92 [place] [id number] [place] [address] 43872- 2265 May, [place] [id number] [place] [address] 17876- 6527 May, Normal in second trimester Z34.92 ; Rh negative state in antepartum period O09.899 and 29 weeks gestation of Z3A.29 [place] [id number] [place] [address] 21832- 2533 May, [place] [id number] [place] [address] 88318- 2969 May, Burning with urination R30.0 and Urinary tract infection in mother during third trimester of O23.43 [place] [address] [address]- 6113 Apr, [place] [id number] [place] [address] 28338- 3202 Apr, care in second trimester Z34.92 ; Diabetes mellitus screening Z13.1 and 25 weeks gestation of Z3A.25 [place] [id number] [place] [address] 37512- 4595 16 Mar, 2017 Normal in second trimester Z34.92 ; Chlamydial infection A74.9 and 21 weeks gestation of Z3A.21 [place] [address] 44618- 4108 19 Feb, 2017 Normal in second trimester Z34.92 ; Chlamydial infection A74.9 ; 17 weeks gestation of Z3A.17 ; Unspecified abdominal pain R10.9 and Other specified related conditions, unspecified trimester O26.899 [place] [address] 69587- 5801 18 Feb, 2017 Encounter for dental examination and cleaning without abnormal findings Z01.20 [place] [address] 91537- 3729 04 Feb, 2017 [place] [address] 36136- 7287 Feb, [place] [address] 04120- 4326 Jan, [place] [id number] [place] [address] 92125- 5044 Jan, Vaginal candidiasis B37.3 [place] [address] 96706- 3729 Jan, [place] [id number] [place] [address] 72991- 2372 Jan, Normal in second trimester Z34.92 and 13 weeks gestation of Z3A.13 [place] [id number] [place] [address] 66934- 0835 Jan, Screening for deficiency anemia Z13.[address] 81330- 5156 Dec, [facility] [id number] [place] [address] 14386- 2937 Dec, [facility] [id number] [place] [address] 13812- 4033 Dec, [facility] [address] 28306- 9751 Dec, Normal , first Z34.00 and 7 weeks gestation of Z3A.01 [facility] [address] 09249- 4659 Nov, Encounter for test, result unknown Z32.00 [place] [address] 21014- 4951 Nov, [place] [address] 16793- 8363 June, Positive test Z32.01 [facility] [address] 46911 -5586 Apr, Allergic rhinitis J30.9 [place] [address] 07329- 7496 Mar, Depressed F32.9 and Grief F43.[address] 61066- 8022 Mar, Depressed F32.9 and Grief F43.20 [place] [address] 37542- 2510 Mar, Adjustment disorder with depressed mood F43.21 and Anxiety disorder, unspecified F41.9 [place] [address] 67666- 0732 May, [place] [address] 39936- 6734 May, [place] [address] 71518- 2546 Feb, [facility] [address] [facility] [id number] [place] [address]- 2546 Feb, [facility] [address] [facility] [id number] [address]- 2546 Oct, [facility] [address] [facility] [id number] [address]- 2546 Oct, IMMUNIZATIONS No Known Immunizations SOCIAL HISTORY Never Assessed REASON FOR VISIT Requests return call PLAN OF CARE VITAL SIGNS MEDICATIONS Unknown [...]
--- OUTSIDE RECORDS SUMMARY | 2017-08-16 16:12 | XMS REPORT ---
Author Author BERNARDO POP Organization [facility] Address [address] [place] [address] Care Team Providers Care Exterior Door Installer Name Role Phone BERNARDO POP Unavailable PROBLEMS Type Condition ICD9-CM Code GAJ86-QM Code Onset Dates Condition Status SNOMED Code Problem Other infections with a predominantly sexual mode of transmission complicating , first trimester O98.311 Active 891674947 Problem Chlamydial infection A74.9 Active 857785590 Problem Abnormal glucose tolerance affecting , antepartum O99.810 Active 84710309 Problem Anxiety disorder, unspecified F41.9 Active 463471321 Problem Rh negative state in antepartum period O09.899 Active 569451569 ALLERGIES No Information ENCOUNTERS Encounter Location Date Diagnosis [place] [address] [place] [address] 29209- 0213 Jul, [place] [id number] [place] [address] 63395- 5316 Jul, [place] [address] [place] [address] 82568- 2230 Jul, Third trimester Z34.93 and 37 weeks gestation of Z3A.37 [place] [id number] [place] [address] 24943- 0142 Jul, screening for streptococcus B Z36.85 ; care, first in third trimester Z34.03 and 36 weeks gestation of Z3A.36 [place] [id number] [place] [address] 68333- 0895 June, [place] [id number] [place] [address] 00259- 9396 June, [place] [id number] [place] [address] 27706- 6662 June, 34 weeks gestation of Z3A.34 and care in third trimester Z34.93 [place] [id number] [place] [address] 86814- 7215 May, [place] [address] [place] [address] 56742- 3756 May, care in third trimester Z34.93 ; Encounter for immunization Z23 and 31 weeks gestation of Z3A.31 [place] [address] [place] [address] 81765- 4273 May, Abnormal glucose tolerance affecting , antepartum O99.810 [place] [id number] [place] [address] 54346- 8599 May, Rh negative state in antepartum period O09.899 [place] [id number] [place] [address] 68230- 9986 May, Normal in second trimester Z34.92 [place] [id number] [place] [address] 49998- 9552 May, [place] [id number] [place] [address] 07789- 2792 May, Normal in second trimester Z34.92 ; Rh negative state in antepartum period O09.899 and 29 weeks gestation of Z3A.29 [place] [address] [place] [address] 38453- 4496 May, [place] [id number] [place] [address] 80088- 7426 May, Burning with urination R30.0 and Urinary tract infection in mother during third trimester of O23.43 [place] [address], [place] [address]- 0222 Apr, [place] [id number] [place] [address] 11425- 8957 Apr, care in second trimester Z34.92 ; Diabetes mellitus screening Z13.1 and 25 weeks gestation of Z3A.25 [place] [id number] [place] [address] 19179- 4453 16 Mar, 2017 Normal in second trimester Z34.92 ; Chlamydial infection A74.9 and 21 weeks gestation of Z3A.[address] 23172- 2422 Feb, Normal in second trimester Z34.92 ; Chlamydial infection A74.9 ; 17 weeks gestation of Z3A.17 ; Unspecified abdominal pain R10.9 and Other specified related conditions, unspecified trimester O26.899 [place] [id number] [place] [address] 06108- 4433 18 Feb, 2017 Encounter for dental examination and cleaning without abnormal findings Z01.[address] 64311- 1294 Feb, [place] [address] 98308- 2545 Feb, [place] [address] 25341- 8138 Jan, [place] [id number] [place] [address] 92007- 1756 Jan, Vaginal candidiasis B37.3 [place] [id number] [place] [address] 26326- 4081 Jan, [place] [address] 33513- 9330 Jan, Normal in second trimester Z34.92 and 13 weeks gestation of Z3A.13 [place] [address] 22404- 4996 Jan, Screening for deficiency anemia Z13.[address] 13949- 7952 Dec, [facility] [id number] [place] [address] 43354- 9587 Dec, [facility] [address] 49997- 3409 Dec, [facility] [id number] [place] [address] 01165- 9801 Dec, Normal , first Z34.00 and 7 weeks gestation of Z3A.01 [facility] [address] 91874- 5391 Nov, Encounter for test, result unknown Z32.00 [place] [address] 35010- 5778 Nov, [place] [address] 93383- 3350 June, Positive test Z32.01 [facility] [id number] [place] [address] 98827 -8913 Apr, Allergic rhinitis J30.9 [place] [address] 87147- 2285 17 Mar, 2015 Depressed F32.9 and Grief F43.20 [place] [address] 76697- 5787 Mar, Depressed F32.9 and Grief F43.20 [place] [address] 41685- 3343 Mar, Adjustment disorder with depressed mood F43.21 and Anxiety disorder, unspecified F41.9 [place] [address] 27847- 2639 May, [place] [address] 56137- 8636 May, [place] [address] 33090- 5834 Feb, [facility] [address] [facility] [id number] [place] [address]- 2546 Feb, [facility] [address] [facility] [id number] [place] [address]- 2546 Oct, [facility] [address] [facility] [id number] [place] [address]- 2546 Oct, IMMUNIZATIONS No Known Immunizations SOCIAL HISTORY Never Assessed REASON FOR VISIT PLAN OF CARE VITAL SIGNS MEDICATIONS Unknown Medications RESULTS No Results PROCEDURES No Known procedures INSTRUCTIONS MEDICATIONS ADMINISTERED No Known Medications MEDICAL (GENERAL) HISTORY Type Description Date Medical History Dave mountain spotted fever treated in 2012 Medical History got bit by agapito orozco spider/ as child Medical History NORIS is [birth year] Surgical History tonsilectomy and adenoidectomy childhood Hospitalization History Went to ER after finance and was put in behavioral health for 24 hours 03/07/15 Hospitalization History brown recluse bite 02/28/2011
--- OUTSIDE RECORDS SUMMARY | 2017-08-16 16:12 | XMS REPORT | Continuity of Care Document ---
Author Author [facility] Address Unknown Phone Unavailable Allergies Active Description Code Type Severity Reaction Onset Reported/Identified Relationship to Patient Clinical Status Yes No Known Drug Allergies [id number] Drug Allergy Unknown N/A 09/22/2016 Medications There is no data. Problems Date Dx Coded Attending Type Code Diagnosis Diagnosed By 11/03/2013 MARCOS BLACK APRN V70.5 EXAM - PRE-EMPLOYMENT 09/22/2016 HUSSAIN CULVER APRN Ot M54.5 LOW BACK PAIN 09/22/2016 HUSSAIN CULVER APRN Ot N39.0 URINARY TRACT INFECTION, SITE NOT SPECIF 09/22/2016 HUSSAIN CULVER APRN Ot Z90.89 ACQUIRED ABSENCE OF OTHER ORGANS 12/23/2016 WILBERTO, TAPAN SKIVER HEEL TAP Ot O20.9 HEMORRHAGE IN EARLY , UNSPECIFI 12/23/2016 WILBERTO, TAPAN SKIVER HEEL TAP Ot O23.41 UNSP INFCT OF URINARY TRACT IN 12/23/2016 WILBERTO, TAPAN SKIVER HEEL TAP Ot R10.32 LEFT LOWER QUADRANT PAIN 12/23/2016 WILBERTO, TAPAN SKIVER HEEL TAP Ot Z3A.12 12 WEEKS GESTATION OF 12/23/2016 WILBERTO, TAPAN SKIVER HEEL TAP Ot Z90.89 ACQUIRED ABSENCE OF OTHER ORGANS 12/27/2016 WILBERTO, TAPAN SKIVER HEEL TAP Ot O20.9 HEMORRHAGE IN EARLY , UNSPECIFI 12/27/2016 WILBERTO, TAPAN SKIVER HEEL TAP Ot O23.41 UNSP INFCT OF URINARY TRACT IN 12/27/2016 WILBERTO, TAPAN SKIVER HEEL TAP Ot R10.32 LEFT LOWER QUADRANT PAIN 12/27/2016 WILBERTO, TAPAN SKIVER HEEL TAP Ot Z3A.12 12 WEEKS GESTATION OF 12/27/2016 WILBERTO TAPAN SKIVER HEEL TAP Ot Z90.89 ACQUIRED ABSENCE OF OTHER ORGANS 01/12/2017 CLAY CLAROS MD Ot Z36.87 ENCOUNTER FOR SCREENING FOR UN 01/12/2017 CLAY CLAROS MD Ot Z3A.08 8 WEEKS GESTATION OF 02/08/2017 CLAY CLAROS MD Ot Z36.87 ENCOUNTER FOR SCREENING FOR UN 02/08/2017 CLAY CLAROS MD Ot Z3A.08 8 WEEKS GESTATION OF 03/24/2017 CLAY CLAROS MD Ot Z36.87 ENCOUNTER FOR SCREENING FOR UN 03/24/2017 CLAY CLAROS MD Ot Z3A.08 8 WEEKS GESTATION OF 03/29/2017 CLAY CLAROS MD Ot Z34.92 ENCNTR FOR SUPRVSN OF NORMAL PREG, UNSP, 03/29/2017 CLAY CLAROS MD Ot Z3A.19 19 WEEKS GESTATION OF 04/03/2017 CLAY CLAROS MD Ot Z34.92 ENCNTR FOR SUPRVSN OF NORMAL PREG, UNSP, 04/03/2017 CLAY CLAROS MD Ot Z3A.19 19 WEEKS GESTATION OF 04/12/2017 CLAY CLAROS MD Ot Z34.92 ENCNTR FOR SUPRVSN OF NORMAL PREG, UNSP, 04/12/2017 CLAY CLAROS MD Ot Z3A.19 19 WEEKS GESTATION OF 06/23/2017 CLAY CLAROS MD Ot Z36.87 ENCOUNTER FOR SCREENING FOR UN 06/23/2017 CLAY CLAROS MD Ot Z3A.08 8 WEEKS GESTATION OF 06/23/2017 CLAY CLAROS MD Ot Z34.92 ENCNTR FOR SUPRVSN OF NORMAL PREG, UNSP, 06/23/2017 CLAY CLAROS MD Ot Z3A.19 19 WEEKS GESTATION OF 06/24/2017 CLAY CLAROS MD Ot O99.810 ABNORMAL GLUCOSE COMPLICATING 06/24/2017 CLAY CLAROS MD Ot O99.810 ABNORMAL GLUCOSE COMPLICATING Procedures There is no data. Results Test Result Range hCG,Beta Subunit, Qnt, Serum - 07/05/16 13:26 hCG,Beta Subunit,Qnt,Serum <1 mIU/mL Bacterial urine culture - 09/22/16 19:31 URINE CULTURE RESULTS <10,000/ML NRG Complete urinalysis with reflex to culture - 12/23/16 13:40 Urine color determination YELLOW NRG Urine clarity determination VERY CLOUDY NRG Urine pH measurement by test strip 5 5-9 Specific gravity of urine by test strip 1.020 1.016- 1.022 Urine protein assay by test strip, semi-quantitative 1+ NEGATIVE Urine glucose detection by automated test strip NEGATIVE NEGATIVE Erythrocytes detection in urine sediment by light microscopy 5+ NEGATIVE Urine ketones detection by automated test strip NEGATIVE NEGATIVE Urine nitrite detection by test strip NEGATIVE NEGATIVE Urine total bilirubin detection by test strip NEGATIVE NEGATIVE Urine urobilinogen measurement by automated test strip (mass/volume) NORMAL NORMAL Urine leukocyte esterase detection by dipstick 3+ NEGATIVE Automated urine sediment erythrocyte count by microscopy (number/high power field) [HPF] NRG Automated urine sediment leukocyte count by microscopy (number/high power field ) > [HPF] NRG Bacteria detection in urine sediment by light microscopy FEW NRG Squamous epithelial cells detection in urine sediment by light microscopy 25-50 NRG Crystals detection in urine sediment by light microscopy PRESENT NRG Casts detection in urine sediment by light microscopy NONE NRG Mucus detection in urine sediment by light microscopy NEGATIVE NRG Complete urinalysis with reflex to culture YES NRG Amorphous sediment detection in urine sediment by light microscopy MOD ALBERT URATES NRG Bacterial urine culture - 12/23/16 13:40 URINE CULTURE RESULTS <10,000/ML NRG CULTURE, URINE - 01/05/17 15:49 CULTURE, URINE, ROUTINE SEE NOTE NRG CULTURE, GENITAL - 01/05/17 15:49 CULTURE, GENITAL SEE NOTE NRG SUREPATH PAP RFX HPV mRNA E6/E7 - 01/05/17 15:58 CLINICAL INFORMATION: NRG LMP: NRG PREV. PAP: 10/03/16 NML NRG PREV. BX: NONE NRG SOURCE: Cervix NRG STATEMENT OF ADEQUACY: NRG INTERPRETATION/RESULT: NRG BASIC ACOUSTIC ANALYST: NRG GENERAL CATEGORIZATION: NRG COMMENT: NRG PATHOLOGIST: NRG CULTURE, GENITAL - 03/18/17 16:06 CULTURE, GENITAL SEE NOTE NRG TEST IN QUESTION - NO TEST FOR CONTAINER - 03/18/17 16:16 QUESTION/PROBLEM: NRG SPECIMEN(S) RECEIVED: SWAB NRG RESOLUTION: NRG COMMENT NRG CULTURE, CHLAMYDIA - 04/15/17 14:50 CULTURE, URINE - 05/30/17 10:40 CULTURE, URINE, ROUTINE SEE NOTE NRG Capillary blood glucose measurement by glucometer (mass/volume) - 06/23/17 07: 25 Capillary blood glucose measurement by glucometer (mass/volume) 85 mg/dL 70-110 Serum or plasma glucose measurement 3 hours post challenge (mass/volume) - 07:28 Serum or plasma glucose measurement 3 hours post challenge (mass/volume) NRG Blood CBC with ordered manual differential panel - 06/23/17 08:33 Blood leukocytes automated count (number/volume) 15.9 10*3/uL 4.3-11.0 Blood erythrocytes automated count (number/volume) 4.12 10*6/uL 4.35-5.85 Venous blood hemoglobin measurement (mass/volume) 11.3 g/dL 11.5-16.0 Blood hematocrit (volume fraction) 34 % 35-52 Automated erythrocyte mean corpuscular volume 82 [foz_us] 80-99 Automated erythrocyte mean corpuscular hemoglobin (mass per erythrocyte) 27 pg 25-34 Automated erythrocyte mean corpuscular hemoglobin concentration measurement ( mass/volume) 33 g/dL 32-36 Automated erythrocyte distribution width ratio 14.1 % 10.0-14.5 Automated blood platelet count (count/volume) 346 10*3/uL 130-400 Automated blood platelet mean volume measurement 8.4 [foz_us] 7.4-10.4 Automated blood neutrophils/100 leukocytes 71 % 42-75 Automated blood lymphocytes/100 leukocytes 20 % 12-44 Blood monocytes/100 leukocytes 5 % NRG Automated blood eosinophils/100 leukocytes 1 % 0-10 Automated blood basophils/100 leukocytes 0 % 0-10 Blood neutrophils automated count (number/volume) 11.2 10*3 1.8-7.8 Blood lymphocytes automated count (number/volume) 3.2 10*3 1.0-4.0 Blood monocytes automated count (number/volume) 1.2 10*3 0.0-1.0 Automated eosinophil count 0.2 10*3/uL 0.0-0.3 Automated blood basophil count (count/volume) 0.0 10*3/uL 0.0-0.1 Manual blood segmented neutrophils/100 leukocytes 58 % NRG Blood band neutrophils/100 leukocytes 5 % NRG Manual blood lymphocytes/100 leukocytes 28 % NRG Manual eosinophils/100 leukocytes in nose 1 % NRG Manual blood basophils/100 leukocytes 1 % NRG Blood erythrocyte morphology finding identification NORMAL NRG Manual blood metamyelocytes/100 leukocytes 1 % NRG Manual blood myelocytes/100 leukocytes 1 % NRG Encounters ACCT No. Visit Date/Time Discharge Status Pt. Type Provider Facility Loc./Unit Complaint [id number] 11/03/2013 09:56:00 11/03/2013 23:59:59 CLS Outpatient SOFIA MADRIDMARCOS Dipak [id number] 06/23/2017 07:11:00 06/23/2017 23:59:59 CLS Outpatient CLAY CLAROS MD [facility] LAB 099.810 [id number] 03/28/2017 10:00:00 03/28/2017 23:59:59 CLS Outpatient CLAY CLAROS MD [facility] RAD Z34.92 NORMAL [id number] 01/11/2017 09:57:00 01/11/2017 23:59:59 CLS Outpatient CLAY CLAROS MD [facility] RAD Z34.00 NORMAL [id number] 12/23/2016 12:44:00 12/23/2016 15:53:00 DIS Emergency TAPAN LADD SKIVER HEEL TAP [facility] ER CRAMPING/SPOTTING/APPROX 9 WKS PG [id number] 09/22/2016 19:12:00 09/22/2016 20:04:00 DIS Emergency HUSSAIN CULVER APRN [facility] ER BACK PAIN [id number] 07/29/2017 14:20:00 07/29/2017 23:59:59 CLS Outpatient MEHRAN LEMUS [facility] [place] [id number] 05/30/2017 10:20:00 Document Registration [id number] 04/15/2017 14:00:00 Document Registration [id number] 03/18/2017 15:00:00 Document Registration [id number] 01/05/2017 14:20:00 Document Registration [id number] 07/06/2016 08:39:00 Document Registration
--- OUTSIDE RECORDS SUMMARY | 2017-08-16 16:12 | XMS REPORT ---
Author Author MARIAH MEHRAN Organization [facility] Address [address] [place] [address] Care Team Providers Care Bone Glue Maker Name Role Phone WHIT LEMUSE Unavailable PROBLEMS Type Condition ICD9-CM Code OGP26-NM Code Onset Dates Condition Status SNOMED Code Problem Anxiety disorder, unspecified F41.9 Active 942431001 Problem Depressed F32.9 Active 21571752 Problem Grief F43.20 Active 39781349 ALLERGIES Substance Reaction Event Type Date Status Sulfa (sulfonamide Antibiotics) Unknown Non Drug Allergy June, Active SOCIAL HISTORY Never Assessed PLAN OF CARE Activity Details Follow Up prn Reason: VITAL SIGNS Height 65 in 2016-07-05 Weight 184.8 lbs 2016-07-05 Temperature 98.4 degrees Fahrenheit 2016-07-05 Heart Rate 88 bpm 2016-07-05 Respiratory Rate 20 2016-07-05 BMI 30.75 kg/m2 2016-07-05 Blood pressure systolic 138 mmHg 2016-07-05 Blood pressure diastolic 72 mmHg 2016-07-05 MEDICATIONS Medication Instructions Dosage Frequency Start Date End Date Duration Status CVS 28-0.8 MG as directed June, Active RESULTS Name Result Date Reference Range TEST, URINE (IN HOUSE) 2016-07-05 RESULTS neg Lot # [id number] Control + Exp date 2017-09-27 HCG, QUANTITATIVE 2016-07-05 hCG,Beta Subunit,Qnt,Serum <1 PROCEDURES Procedure Date Ordered Result Body Site URINE TEST July 05, 2016 VENIPUNCT, ROUTINE* July 05, 2016 CHORIONIC GONADOTROPIN TEST July 05, 2016 IMMUNIZATIONS No Known Immunizations MEDICAL (GENERAL) HISTORY Type Description Date Medical History Dave mountain spotted fever Medical History got bit by brown reckristase spider Surgical History tonsilectomy and adenoidectomy childhood Hospitalization History Went to ER after finance and was put in behavioral health for 24 hours 03/07/15 Hospitalization History brown recluse bite 02/28/2011
--- OUTSIDE RECORDS SUMMARY | 2017-08-16 16:12 | XMS REPORT ---
Author Author SUKHDEEP ADDISON Organization [facility] Address [address] [place] [address] Care Team Providers Care Silica Filter Operator Name Role Phone SUKHDEEP ADDISON Unavailable PROBLEMS Type Condition ICD9-CM Code MEQ18-WW Code Onset Dates Condition Status SNOMED Code Problem Other infections with a predominantly sexual mode of transmission complicating , first trimester O98.311 Active 447233584 Problem Chlamydial infection A74.9 Active 940734748 Problem Abnormal glucose tolerance affecting , antepartum O99.810 Active 22394272 Problem Anxiety disorder, unspecified F41.9 Active 911630315 Problem Rh negative state in antepartum period O09.899 Active 460906579 ALLERGIES No Information ENCOUNTERS Encounter Location Date Diagnosis [place] [address] [place] [address] 34124- 1027 Jul, [place] [address] [place] [id number] [place] [address] 05069- 0526 Jul, [place] [address] [place] [id number] [place] [address] 21360- 9291 Jul, Third trimester Z34.93 and 37 weeks gestation of Z3A.37 [place] [address] [place] [id number] [place] [address] 87259- 6249 Jul, screening for streptococcus B Z36.85 ; care, first in third trimester Z34.03 and 36 weeks gestation of Z3A.36 [place] [address] [place] [id number] [place] [address] 70081- 0224 June, [place] [address] [place] [id number] [place] [address] 94707- 8539 June, [place] [address] [place] [address] June, 34 weeks gestation of Z3A.34 and care in third trimester Z34.93 [place] [address] [place] [id number] [place] [address] 71623- 6042 May, [facility] [address] [place] [id number] [place] [address] 59990- 6710 May, care in third trimester Z34.93 ; Encounter for immunization Z23 and 31 weeks gestation of Z3A.31 [place] [address] [place] [address] May, Abnormal glucose tolerance affecting , antepartum O99.810 [place] [address] [place] [id number] [place] [address] 84197- 2135 May, Rh negative state in antepartum period O09.899 [place] [address] [place] [id number] [place] [address] 57895- 1704 May, Normal in second trimester Z34.92 [place] [address] [place] [address] 04207- 9248 May, [place] [address] [place] [address] 37805- 3774 May, Normal in second trimester Z34.92 ; Rh negative state in antepartum period O09.899 and 29 weeks gestation of Z3A.29 [place] [address] [id number] [address] 6872 May, [place] [address] [place] [address] 98687- 2545 May, Burning with urination R30.0 and Urinary tract infection in mother during third trimester of O23.43 [place] [address] [address] 56[address] Apr, [place] [address] [place] [id number] [place] [address] 53103- 6417 Apr, care in second trimester Z34.92 ; Diabetes mellitus screening Z13.1 and 25 weeks gestation of Z3A.25 [place] [address] 57344- 8002 16 Mar, 2017 Normal in second trimester Z34.92 ; Chlamydial infection A74.9 and 21 weeks gestation of Z3A.21 [place] [address] [address]- 5794 19 Feb, 2017 Normal in second trimester Z34.92 ; Chlamydial infection A74.9 ; 17 weeks gestation of Z3A.17 ; Unspecified abdominal pain R10.9 and Other specified related conditions, unspecified trimester O26.899 [place] [address] 59136- 2484 18 Feb, 2017 Encounter for dental examination and cleaning without abnormal findings Z01.20 [place] [address] 27894- 2718 04 Feb, 2017 [place] [address] 08705- 8902 Feb, [place] [address] 81872- 0130 Jan, [place] [address] 21496- 8315 Jan, Vaginal candidiasis B37.3 [place] [address] 21853- 4571 Jan, [place] [address] [place] [id number] [place] [address] 62041- 2373 Jan, Normal in second trimester Z34.92 and 13 weeks gestation of Z3A.13 [place] [address] 00221- 6189 Jan, Screening for deficiency anemia Z13.[address] 30265- 9863 Dec, [facility] [address] [place] [id number] [place] [address] 31827- 4771 Dec, [facility] [address] [place] [id number] [place] [address] 26123- 0027 Dec, [facility] [address] [place] [id number] [place] [address] 13556- 3214 Dec, Normal , first Z34.00 and 7 weeks gestation of Z3A.01 [facility] [address] [place] [id number] [place] [address] 30431- 1750 Nov, Encounter for test, result unknown Z32.00 [place] [address] [place] [id number] [place] [address] 98477- 3928 Nov, [place] [address] [place] [id number] [place] [address] 54232- 5024 June, Positive test Z32.01 [facility] [address] [place] [id number] [place] [address] 51451 -4324 Apr, Allergic rhinitis J30.9 [place] [address] [place] [id number] [place] [address] 69418- 3426 17 Mar, 2015 Depressed F32.9 and Grief F43.20 [place] [id number] [place] [address] 72500- 6482 Mar, Depressed F32.9 and Grief F43.20 [place] [address] [place] [address] [place] [address] 05950- 4730 Mar, Adjustment disorder with depressed mood F43.21 and Anxiety disorder, unspecified F41.9 [facility] [address] [place] [address] [place] [address] 32316- 1308 May, [facility] [address] [place] [id number] [place] [address] 69474- 2544 May, [facility] [address] 33850- 2546 Feb, [facility] [address] [facility] [id number] [address] 2546 Feb, [facility] [address] [facility] [id number] [address] 2546 Oct, [facility] [address] [facility] [id number] [place] [address]- 2546 Oct, IMMUNIZATIONS No Known Immunizations SOCIAL HISTORY Never Assessed REASON FOR VISIT [facility] Hemoglobin PLAN OF CARE VITAL SIGNS MEDICATIONS Unknown Medications RESULTS Name Result Date Reference Range HEMOGLOBIN (IN HOUSE) 2017-02-15 HEMOGLOBIN 12.3 11.5 - 16 gm/dL Lot # [id number] Exp date 01/17/2018 PROCEDURES Procedure Date Ordered Result Body Site HEMOGLOBIN Feb 15, 2017 INSTRUCTIONS MEDICATIONS ADMINISTERED No [...]
--- OUTSIDE RECORDS SUMMARY | 2017-08-16 16:12 | XMS REPORT ---
Author Author HYACINTH CLAY [facility] Address [address] [place] [address] Care Team Providers Care Lpn Or Medical Assistant Name Role Phone CLAY CLAROS Unavailable PROBLEMS Type Condition ICD9-CM Code NGW10-TD Code Onset Dates Condition Status SNOMED Code Problem Other infections with a predominantly sexual mode of transmission complicating , first trimester O98.311 Active 924383816 Problem Chlamydial infection A74.9 Active 336417405 Problem Abnormal glucose tolerance affecting , antepartum O99.810 Active 59635577 Problem Anxiety disorder, unspecified F41.9 Active 243950894 Problem Rh negative state in antepartum period O09.899 Active 074572042 ALLERGIES No Information ENCOUNTERS Encounter Location Date Diagnosis [place] [address] [place] [address] 92663- 9264 Jul, [place] [address] [place] [id number] [place] [address] 47024- 8293 Jul, [place] [address] [place] [address] 85588- 4280 Jul, [place] [address] [place] [id number] [place] [address] 33520- 6340 Jul, screening for streptococcus B Z36.85 ; care, first in third trimester Z34.03 and 36 weeks gestation of Z3A.36 [place] [address] [place] [id number] [place] [address] 60331- 0332 June, [place] [address] [place] [id number] [place] [address] 03594- 2850 June, [place] [address] [place] [id number] [place] [address] 51502- 4084 June, 34 weeks gestation of Z3A.34 and care in third trimester Z34.93 [place] [address] [address]- 0042 May, [place] [address] [place] [id number] [place] [address] 79269- 4167 May, care in third trimester Z34.93 ; Encounter for immunization Z23 and 31 weeks gestation of Z3A.31 [place] [address] [place] [id number] [place] [address] 57745- 7984 May, Abnormal glucose tolerance affecting , antepartum O99.810 [place] [address] [place] [id number] [place] [address] 76537- 5544 May, Rh negative state in antepartum period O09.899 [place] [address] [place] [id number] [place] [address] 97249- 5420 May, Normal in second trimester Z34.92 [place] [address] [place] [id number] [place] [address] 48740- 2017 May, [place] [address] [place] [id number] [place] [address] 16183- 1452 May, Normal in second trimester Z34.92 ; Rh negative state in antepartum period O09.899 and 29 weeks gestation of Z3A.29 [place] [address] [place] [id number] [place] [address] 71138- 3352 May, [place] [address] [place] [id number] [place] [address] 70907- 1861 May, Burning with urination R30.0 and Urinary tract infection in mother during third trimester of O23.43 [place] [address] [place] [id number] [place] [address] 34834- 5755 Apr, [place] [address] [place] [id number] [place] [address] 15740- 4298 Apr, care in second trimester Z34.92 ; Diabetes mellitus screening Z13.1 and 25 weeks gestation of Z3A.25 [facility] [address] [address]- 2770 16 Mar, 2017 Normal in second trimester Z34.92 ; Chlamydial infection A74.9 and 21 weeks gestation of Z3A.21 [place] [address] [place] [address]- 9603 19 Feb, 2017 Normal in second trimester Z34.92 ; Chlamydial infection A74.9 ; 17 weeks gestation of Z3A.17 ; Unspecified abdominal pain R10.9 and Other specified related conditions, unspecified trimester O26.899 [place] [address] [place] [id number] [place] [address] 53621- 6882 18 Feb, 2017 Encounter for dental examination and cleaning without abnormal findings Z01.20 [place] [address] [place] [id number] [place] [address] 50189- 2612 04 Feb, 2017 [place] [address] [place] [id number] [place] [address] 13385- 2424 Feb, [place] [address] [place] [id number] [place] [address] 86148- 7585 Jan, [place] [address] [place] [id number] [place] [address] 79373- 7865 Jan, Vaginal candidiasis B37.3 [place] [address] [place] [address] 32676- 1884 Jan, [place] [address] [place] [id number] [place] [address] 08296- 8918 Jan, Normal in second trimester Z34.92 and 13 weeks gestation of Z3A.13 [place] [address] [place] [id number] [place] [address] 94687- 0670 Jan, Screening for deficiency anemia Z13.0 [place] [address] [place] [address] 83092- 4530 Dec, [place] [address] [place] [id number] [place] [address] 25292- 3738 Dec, [facility] [address] [place] [id number] [place] [address] 10054- 6344 Dec, [facility] [address] [place] [id number] [place] [address] 52402- 1348 Dec, Normal , first Z34.00 and 7 weeks gestation of Z3A.01 [place] [address] 77496- 7186 Nov, Encounter for test, result unknown Z32.00 [place] [address] 23867- 2786 Nov, [place] [address] [place] [id number] [place] [address] 70625- 1502 June, Positive test Z32.01 [facility] [address] 85904 -5241 Apr, Allergic rhinitis J30.9 [place] [address] [place] [id number] [place] [address] 79183- 8589 Mar, Depressed F32.9 and Grief F43.20 [place] [address] [place] [id number] [place] [address] 76375- 7032 Mar, Depressed F32.9 and Grief F43.20 [place] [address] [place] [id number] [place] [address] 15138- 2619 Mar, Adjustment disorder with depressed mood F43.21 and Anxiety disorder, unspecified F41.9 [place] [address] [place] [id number] [place] [address] 62748- 7549 May, [place] [address] 73280- 8504 May, [place] [address] [place] [id number] [place] [address] 54412- 7602 Feb, [place] [address] [facility] [id number] [place] [address] Feb, [facility] [address] [facility] [id number] [address] Oct, [facility] [address] [facility] [id number] [place] [address] Oct, IMMUNIZATIONS No Known Immunizations SOCIAL HISTORY Never Assessed REASON FOR VISIT STD check--tcuppettRN PLAN OF CARE VITAL SIGNS MEDICATIONS Unknown [...]
--- OUTSIDE RECORDS SUMMARY | 2017-08-16 16:12 | XMS REPORT ---
Author Author HYACINTH CLAY [facility] Address [address] [place] [address] Care Team Providers Care Assisted Living Care Manager Name Role Phone HYACINTHRADHIKA AGUILARY Unavailable PROBLEMS Type Condition ICD9-CM Code GFT02-PC Code Onset Dates Condition Status SNOMED Code Problem Other infections with a predominantly sexual mode of transmission complicating , first trimester O98.311 Active 092525717 Problem Chlamydial infection A74.9 Active 068013312 Problem Abnormal glucose tolerance affecting , antepartum O99.810 Active 81196876 Problem Anxiety disorder, unspecified F41.9 Active 971362788 Problem Rh negative state in antepartum period O09.899 Active 838563539 ALLERGIES No Information ENCOUNTERS Encounter Location Date Diagnosis [place] [id number] [place] [address] Jul, [place] [id number] [place] [address]73- [address]99 Jul, [place] [id number] [place] [address] 79492- 3563 Jul, Third trimester Z34.93 and 37 weeks gestation of Z3A.37 [place] [id number] [place] [address] 11755- 8040 Jul, screening for streptococcus B Z36.85 ; care, first in third trimester Z34.03 and 36 weeks gestation of Z3A.36 [place] [id number] [place] [address]34- 2007 June, [place] [id number] [place] [address] 19458- 9357 June, [place] [address] [place] [address] June, 34 weeks gestation of Z3A.34 and care in third trimester Z34.93 [place] [id number] [place] [address] 24405- 1669 May, [place] [id number] [place] [address] 71479- 1977 May, care in third trimester Z34.93 ; Encounter for immunization Z23 and 31 weeks gestation of Z3A.31 [place] [id number] [place] [address] 31995- 2734 May, Abnormal glucose tolerance affecting , antepartum O99.810 [place] [id number] [place] [address] 56830- 6914 May, Rh negative state in antepartum period O09.899 [place] [id number] [place] [address] 33202- 7335 May, Normal in second trimester Z34.92 [place] [id number] [place] [address] 53543- 4202 May, [place] [id number] [place] [address] 05753- 0528 May, Normal in second trimester Z34.92 ; Rh negative state in antepartum period O09.899 and 29 weeks gestation of Z3A.29 [place] [id number] [place] [address] 12688- 4105 May, [place] [id number] [place] [address] 68125- 5952 May, Burning with urination R30.0 and Urinary tract infection in mother during third trimester of O23.43 [place] [address] [address] Apr, [place] [id number] [place] [address] 56872- 5921 Apr, care in second trimester Z34.92 ; Diabetes mellitus screening Z13.1 and 25 weeks gestation of Z3A.25 [place] [id number] [place] [address] 67064- 3901 16 Mar, 2017 Normal in second trimester Z34.92 ; Chlamydial infection A74.9 and 21 weeks gestation of Z3A.21 [place] [address] 16263- [address] 19 Feb, 2017 Normal in second trimester Z34.92 ; Chlamydial infection A74.9 ; 17 weeks gestation of Z3A.17 ; Unspecified abdominal pain R10.9 and Other specified related conditions, unspecified trimester O26.899 [place] [address] [address]- [address] 18 Feb, 2017 Encounter for dental examination and cleaning without abnormal findings Z01.20 [place] [address] [address]- [address] 04 Feb, 2017 [place] [address] [address]- [address] Feb, [place] [address] [address]- [address]678 Jan, [place] [id number] [place] [address] 37452- 9898 Jan, Vaginal candidiasis B37.3 [place] [address] 61116- 3716 Jan, [place] [id number] [place] [address] 43453- 8334 Jan, Normal in second trimester Z34.92 and 13 weeks gestation of Z3A.13 [place] [id number] [place] [address] 82119- 7500 Jan, Screening for deficiency anemia Z13.[address] [address]- [address] Dec, [facility] [id number] [place] [address] 04381- 1039 Dec, [facility] [id number] [place] [address] 19792- 0639 Dec, [facility] [address] 68[address]- 1748 Dec, Normal , first Z34.00 and 7 weeks gestation of Z3A.01 [facility] [address] 75166- 6744 Nov, Encounter for test, result unknown Z32.00 [place] [address] 20290- [address]87 Nov, [place] [address] 77027- 3797 June, Positive test Z32.[address] [facility] [address] [address] Apr, Allergic rhinitis J30.9 [place] [address] 50181- 7085 Mar, Depressed F32.9 and Grief F43.[address] [address]88- [address]48 Mar, Depressed F32.9 and Grief F43.20 [place] [address] 15627- 94[address] Mar, Adjustment disorder with depressed mood F43.21 and Anxiety disorder, unspecified F41.9 [place] [address] 9[address]68- [address]878 May, [place] [address] 90730- 4[address] May, [place] [address] 56953- [address] Feb, [facility] [address] [facility] [id number] [place] [address] Feb, [facility] [address] [facility] [id number] [address] Oct, [facility] [address] [facility] [id number] [address] Oct, IMMUNIZATIONS No Known Immunizations SOCIAL HISTORY Never Assessed REASON FOR VISIT ob lab PLAN OF CARE VITAL SIGNS MEDICATIONS Unknown [...]
[2017-08-16] MEDS ORDERED: MISOPROSTOL 100 MCG (CYTOTEC) TAB PO NR (16:30)
[2017-08-16] MEDS ORDERED: TERBUTALINE INJ 1 MG/ML (BRETHINE) AMP SC PRN (16:30)
[2017-08-16] MEDS ORDERED: MINERAL OIL CONCENTRATE 99.9% 15 ML UDC TOP PRN (16:30)
--- NOTE | 2017-08-16 16:35 | History & Physical-OB ---
OB - Chief Complaint & HPI Date/Time Date of Admission: Date of Admission: Aug 16, 2017 at 3:50 pm Time Seen by Provider: 14:00 Chief Complaint/History OB-Reason for Admission/Chief: Obstetrical Complication Hx : 1 Hx Para: 0 Expected Date of Delivery: Aug 20, 2017 Gestational Age in Weeks: 39 Gestational Age in Days: 3 Indication for induction: medical complication (hypertension, suspected preeclampsia) Other reason for admission: Patient seen in clinic this afternoon and had BP 142/88, 1+ pitting edema, weight gain of 10 lbs in one week, headaches and 1+ protein on urine dipstick. History of Labs A neg, antibody neg, RI. HepB/RPR/HIV neg. GC neg. Chlamydia pos, treated and CLIFTON negative. GBS negative. 1 hour glucola abnormal, 3 hour with 1/3 elevated. Allergies and Home Medications Allergies Coded Allergies: No Known Drug Allergies (Unverified , 09/22/16) Home Medications Clindamycin HCl 300 Mg Capsule, 300 MG PO TID, (Reported) Nitrofurantoin Monohyd/M-Cryst 100 Mg Capsule, 1 TAB PO BID Prescribed by: TAPAN LDAD on 12/23/16 1549 Patient Home Medication List Home Medication List Reviewed: Yes OB - History Hx of Present Care: Yes Ultrasounds: Normal mid trimester US Obstetrical Complications: Pre-eclampsia Information Induced Hypertension: Yes Obstetrical History Hx : 1 Hx Para: 0 Patient Past Medical History PMHx: No significant PSurgHx: Tonsillectomy/adenoidectomy Social History/Family History HIV/AIDS: No Recent Infectious Disease Expo: No Sexually Transmitted Disease: Yes (chlamydia) Alcohol Use: Denies Use Recreational Drug Use: No Smoking Cessation: Former smoker Immunizations Tetanus Booster (TDap): Less than 5yrs Rubella: immune RPR/VDRL: Negative GBS Status: Negative HBsAG: Negative OB - Admission Exam Physical Exam HEENT: NCAT Abdomen: Non tender Extremities: Edema (1+) Cervical Dilatation: 3cm Effacement: 0% Station: -3 Membranes: Intact Heart Rate: 130's Contractions on Admission: >10 Minutes Apart Clay Scoring Tool (Modified) Dilation (cm): 3-4cm (2) Effacement (%): 0-30% (0) Descent/Station: -3 (0) Cervix Consistency: Soft (2) Cervix Position: Middle/Mid-Position (1) Add 1 point for: Pre-eclampsia (1) Subtract 1 point for: Nulliparity (-1) Clay Score: 5 OB - Assessment/Plan/Diagnosis Assessment Assessment: induction of labor, other (suspected preeclampsia) Admission Dx IOL at 39 weeks gestation for hypertension, suspected mild preeclampsia Admission Status: Inpatient Order (span 2 midnights) Reason for Inpatient Admission: Labor and delivery Plan Plan: Induction, Other (CBC, CMP, uric acid, LDH, urine pr/creatinine ratio. Magnesium if severe features of preeclampsia noted on labs or BP) Induction Method: per Misoprostol Protocol CLAY CLAROS MD Aug 16, 2017 4:35 pm
[2017-08-16] MEDS: D5 LR IV SOLUTION 1,000 ML IV SCH (17:00)
[2017-08-16 17:17] LABS: BASOPHILS % (AUTO) 0 % (0-10); EOSINOPHILS # (AUTO) 0.4 10^3/uL (0.0-0.3); EOSINOPHILS % (AUTO) 2 % (0-10); HEMATOCRIT 31 % (35-52); HEMOGLOBIN 10.4 G/DL (11.5-16.0); LYMPHOCYTES # (AUTO) 2.4 X 10^3 (1.0-4.0); LYMPHOCYTES % (AUTO) 17 % (12-44); MEAN CORPUSCULAR HEMOGLOBIN 26 PG (25-34); MEAN CORPUSCULAR HGB CONC 33 G/DL (32-36); MEAN CORPUSCULAR VOLUME 79 FL (80-99); MEAN PLATELET VOLUME 9.4 FL (7.4-10.4); MONOCYTES # (AUTO) 1.1 X 10^3 (0.0-1.0); MONOCYTES % (AUTO) 8 % (0-12); NEUTROPHILS # (AUTO) 10.6 X 10^3 (1.8-7.8); NEUTROPHILS % (AUTO) 74 % (42-75); PLATELET COUNT 332 10^3/uL (130-400); RED CELL DISTRIBUTION WIDTH 15.5 % (10.0-14.5); WHITE BLOOD COUNT 14.5 10^3/uL (4.3-11.0)
[2017-08-16 17:34] LABS: ALANINE AMINOTRANSFERASE 19 U/L (0-55); ALKALINE PHOSPHATASE 111 U/L (40-136); BILIRUBIN,TOTAL 0.3 MG/DL (0.1-1.0); BUN/CREATININE RATIO 17; CALCIUM 8.7 MG/DL (8.5-10.1); CARBON DIOXIDE 20 MMOL/L (21-32); CHLORIDE 111 MMOL/L (98-107); CREATININE SERUM 0.66 MG/DL (0.60-1.30); GFR ESTIMATED > 60; GLUCOSE 88 MG/DL (70-105); POTASSIUM 4.4 MMOL/L (3.6-5.0); SODIUM 139 MMOL/L (135-145); TOTAL PROTEIN 6.2 GM/DL (6.4-8.2); URIC ACID 5.8 MG/DL (2.6-7.2)
[2017-08-16 17:45] LABS: BAND NEUTROPHILS 0 %; BASOPHILS % (MANUAL) 0 %; EOSINOPHILS % (MANUAL) 3 %; HYPOCHROMASIA SLIGHT; LYMPHOCYTES % (MANUAL) 16 %; MICROCYTOSIS SLIGHT; MONOCYTES % (MANUAL) 7 %; NEUTROPHILS % (MANUAL) 74 %
[2017-08-16] MEDS ORDERED: CETI-343 PO (17:46)
[2017-08-16] MEDS ORDERED: CATHETER FLUSH 10 ML SYR IV SCH (22:00)
[2017-08-16] MEDS ORDERED: MISOPROSTOL 100 MCG (CYTOTEC) TAB PO ONE (22:00)
[2017-08-17] VITALS (31 sets, daily range): BP systolic 121–162; BP diastolic 59–101
[2017-08-17] MEDS ORDERED: OXYTOCIN/NORMAL SALINE 500 ML IV SCH ×2 (02:02→10:35)
[2017-08-17] MEDS ORDERED: fentaNYL INJECTION 100 MCG/2 ML AMP IVP PRN (02:15)
[2017-08-17] MEDS: D5 LR IV SOLUTION 1,000 ML IV SCH (04:21)
[2017-08-17] MEDS ORDERED: LACTATED RINGERS 1,000 ML IV ONE ×2 (05:05→05:27)
[2017-08-17] MEDS ORDERED: SUFENTA 0.6MCG/ML BUPIVA 0.125 100 ML ONE (05:07)
[2017-08-17] MEDS ORDERED: EPIDURAL (SUFENTA 0.6MCG/ML BUPIVA 0.125%) 100 ML BAG EPI SCH (05:30)
[2017-08-17] MEDS ORDERED: CATHETER FLUSH 10 ML SYR IV PRN (05:30)
[2017-08-17] MEDS ORDERED: NALOXONE 0.4 MG/ML 1 ML (NARCAN) VIAL IV PRN ×2 (05:30→06:30)
[2017-08-17] MEDS ORDERED: BUPIVACAINE 0.25% 30 ML (SENSORCAINE) VIAL ONE ×2 (05:34→06:31)
[2017-08-17] MEDS ORDERED: fentaNYL INJECTION 100 MCG/2 ML AMP ONE (05:53)
[2017-08-17] MEDS ORDERED: LACTATED RINGERS 1,000 ML IV SCH (06:25)
[2017-08-17] MEDS ORDERED: ONDANSETRON 4 MG/2 ML (SDV) Z0FRAN IV PRN (06:30)
[2017-08-17] MEDS ORDERED: EPIDURAL (SUFENTA 0.6MCG/ML BUPIVA 0.125%) 100 ML BAG EPI PRN (06:30)
[2017-08-17] MEDS ORDERED: diphenhydrAMINE 50 MG/ML INJ (BENADRYL) IV PRN (06:30)
[2017-08-17] MEDS ORDERED: LIDOCAINE PF 2% 5 ML (XYLOCAINE) VIAL ONE (06:31)
[2017-08-17] MEDS ORDERED: LIDOCAINE/EPI 2% 1:200,00 (XYLOCAINE) 10 ML VIAL ONE (08:54)
--- NOTE | 2017-08-17 09:59 | OB Labor & Delivery Record ---
Vag Delivery Note Vag Delivery Note Date of Delivery: 08/17/17 Preoperative Diagnosis: Maria Esther Randolph is a (22 /Para 1 / 0, Gestational Age (wks)39with 4 days Postoperative Diagnosis: Same Surgeon: CLAY CLAROS Anesthesia: epidural Delivery Type: spontaneous vaginal delivery Findings: Viable male infant, apgars 8/9, weight 6#2 Lacerations: first degree perineal, bilateral periurethral Intact placenta with 3 vessel cord. No nuchal cord, body cord or shoulder dystocia Estimated Blood Loss: 100 ml Complications: None Condition: Stable Description of Procedure: The patient is a 22 yo G1 who presented for IOL at 39w3d due to newly diagnosed preeclampsia. She was admitted and informed consent was obtained. Her labor course was unremarkable. She progressed to complete dilatation and began to push. She was then set up for delivery. The infant's head was delivered atraumatically in the ROBIN position. The shoulders and remainder of the infant's body were then delivered without difficulty. Upon delivery, the infant was placed on maternal abdomen. After a delay, the cord was doubly clamped and cut and the infant remained on maternal abdomen. An intact placenta with 3-vessel cord delivered via Nataly and there was found to be minimal bleeding.~ Vigorous fundal massage was performed and the fundus was found to be firm. IV oxytocin was given. Examination of the vagina and perineum revealed a first degree perineal laceration repaired in the usual fashion with 3-0 rapide suture and bilateral periurethral abrasions not requiring repair. Following the repair , sponge, instrument and needle counts were correct. Mom and baby were both in stable condition in the labor suite. Vitals - Labs Vital Signs - I&O Vital Signs 08/16/17 08/17/17 08/17/17 08/17/17 19:00 07:00 07:45 08:00 Temp 98.5 Pulse 59 Resp 18 B/P (MAP) 136/81 (99) Pulse Ox 98 O2 Delivery Room Air Labs Laboratory Tests 08/16/17 16:55: White Blood Count 14.5H, Red Blood Count 4.00L, Hemoglobin 10.4L, Hematocrit 31L , Mean Corpuscular Volume 79L, Mean Corpuscular Hemoglobin 26, Mean Corpuscular Hemoglobin Concent 33, Red Cell Distribution Width 15.5H, Platelet Count 332, Mean Platelet Volume 9.4, Neutrophils (%) (Auto) 74, Lymphocytes (%) (Auto) 17, Monocytes (%) (Auto) 8, Eosinophils (%) (Auto) 2, Basophils (%) (Auto) 0, Neutrophils # (Auto) 10.6H, Lymphocytes # (Auto) 2.4, Monocytes # (Auto) 1.1H, Eosinophils # (Auto) 0.4H, Basophils # (Auto) 0.0, Neutrophils % (Manual) 74, Lymphocytes % (Manual) 16, Monocytes % (Manual) 7, Eosinophils % (Manual) 3, Basophils % (Manual) 0, Band Neutrophils 0, Hypochromasia SLIGHT, Microcytosis SLIGHT, Sodium Level 139, Potassium Level 4.4, Chloride Level 111H, Carbon Dioxide Level 20L, Anion Gap 8, Blood Urea Nitrogen 11, Creatinine 0.66, Estimat Glomerular Filtration Rate > 60, BUN/Creatinine Ratio 17, Glucose Level 88, Uric Acid 5.8, Calcium Level 8.7, Total Bilirubin 0.3, Aspartate Amino Transf (AST/SGOT) 20, Alanine Aminotransferase (ALT/SGPT) 19, Alkaline Phosphatase 111, Lactate Dehydrogenase 195, Total Protein 6.2L, Albumin 3.0L 08/16/17 17:00: Urine Protein 56H, Urine Creatinine 136H, Urine Protein/Creatinine Ratio 0.41 CLAY CLAROS MD Aug 17, 2017 9:59 am
[2017-08-17] MEDS ORDERED: HYDROcodone/APAP 5 MG/325 MG (LORTAB) TAB PO PRN (10:45)
[2017-08-17] MEDS ORDERED: BENZOCAINE/MENTHOL (DERMOPLAST) 56 ML CAN TP PRN (10:45)
[2017-08-17] MEDS ORDERED: WITCH HAZEL(TUCKS) 40 EA JAR TOP PRN (10:45)
[2017-08-17] MEDS ORDERED: IBUPROFEN 600 MG (MOTRIN) TAB PO ONE (12:12)
[2017-08-17] MEDS ORDERED: CATHETER FLUSH 10 ML SYR IV SCH (14:00)
[2017-08-18 00:35] VITALS: BP 140/90
[2017-08-18 04:00] VITALS: BP 139/95
[2017-08-18 05:47] LABS: BASOPHILS % (AUTO) 0 % (0-10); EOSINOPHILS # (AUTO) 0.3 10^3/uL (0.0-0.3); EOSINOPHILS % (AUTO) 2 % (0-10); HEMATOCRIT 28 % (35-52); HEMOGLOBIN 9.2 G/DL (11.5-16.0); LYMPHOCYTES # (AUTO) 3.6 X 10^3 (1.0-4.0); LYMPHOCYTES % (AUTO) 24 % (12-44); MEAN CORPUSCULAR HEMOGLOBIN 26 PG (25-34); MEAN CORPUSCULAR HGB CONC 33 G/DL (32-36); MEAN CORPUSCULAR VOLUME 79 FL (80-99); MEAN PLATELET VOLUME 9.1 FL (7.4-10.4); MONOCYTES # (AUTO) 1.1 X 10^3 (0.0-1.0); MONOCYTES % (AUTO) 8 % (0-12); NEUTROPHILS % (AUTO) 66 % (42-75); PLATELET COUNT 256 10^3/uL (130-400); RED BLOOD COUNT 3.53 10^6/uL (4.35-5.85); WHITE BLOOD COUNT 15.1 10^3/uL (4.3-11.0)
[2017-08-18] MEDS ORDERED: PRENATAL VITAMIN 1 EA TAB PO SCH (07:00)
[2017-08-18] MEDS ORDERED: FERROUS SULF 325 MG (IRON) TAB PO SCH (07:00)
[2017-08-18 08:18] VITALS: BP 137/95
--- NOTE | 2017-08-18 10:52 | Anesthesia-Regional Post-Op ---
Regional Patient Condition Mental Status: Alert, Oriented x3 Circulation: Same as Pre-Op Headache: Absent Sensation: Full Recovery Motor Block: Absent Post Op Complications Complications None Follow Up Care/Instructions Patient Instructions None needed. Anesthesia/Patient Condition Patient is doing well, no complaints, stable vital signs, no apparent adverse anesthesia problems. No complications reported per nursing. ROSEMARY GIFFORD CRNA Aug 18, 2017 10:52
--- NOTE | 2017-08-18 11:02 | Progress Note (SOAP) ---
Subjective Subjective/Events-last exam Afebrile, no acute events. BP mildly elevated, no marked elevations. Denies shortness of breath. Lochia decreasing. Pain controlled. Review of Systems Date Seen by Provider: Aug 18, 2017 Time Seen by Provider: 08:17 Objective Exam Last Set of Vital Signs Vital Signs Date Time Temp Pulse Resp B/P (MAP) Pulse Ox O2 Delivery O2 Flow Rate FiO2 08/18/17 08:18 97.1 75 16 137/95 (109) 97 Room Air Capillary Refill : I&O Intake and Output 08/18/17 00:00 Intake Total 2145 ml Balance 2145 ml Intake Oral 20 ml IV Total 2125 ml # Voids 1 General: Alert, No Acute Distress Lungs: Clear to Auscultation, Normal Air Movement Heart: Regular Rate, No Murmurs Abdomen: Other (fundus firm below umbilicus) Neuro: Normal Speech Psych/Mental Status: Mental Status NL Results/Procedures Lab Laboratory Tests 08/18/17 05:15: White Blood Count 15.1H, Red Blood Count 3.53L, Hemoglobin 9.2L, Hematocrit 28L , Mean Corpuscular Volume 79L, Mean Corpuscular Hemoglobin 26, Mean Corpuscular Hemoglobin Concent 33, Red Cell Distribution Width 16.0H, Platelet Count 256, Mean Platelet Volume 9.1, Neutrophils (%) (Auto) 66, Lymphocytes (%) (Auto) 24, Monocytes (%) (Auto) 8, Eosinophils (%) (Auto) 2, Basophils (%) (Auto) 0, Neutrophils # (Auto) 10.0H, Lymphocytes # (Auto) 3.6, Monocytes # (Auto) 1.1H, Eosinophils # (Auto) 0.3, Basophils # (Auto) 0.0 Assessment/Plan Assessment/Plan (1) Spontaneous vaginal delivery Status: Acute Assessment & Plan: Routine care (2) anemia Status: Acute Assessment & Plan: Iron sulfate daily (3) Blood type A- Status: Chronic Assessment & Plan: Infant Rh positive, needs rhogam (4) Preeclampsia Status: Acute Assessment & Plan: One BP above 160 immediately after delivery, since then has remained elevated but below 160/110. Monitor closely. Qualifiers: Qualified Codes: O14.93 - Unspecified pre-eclampsia, third trimester Clinical Quality Measures DVT/VTE Risk/Contraindication: Risk Factor Score Per Nursin RFS Level Per Nursing on Admit: 1=Low/No VTE PPX CLAY CLAROS MD Aug 18, 2017 11:01 am
[2017-08-18 11:40] VITALS: BP 142/108
[2017-08-18] MEDS ORDERED: IBUP-1773 PO (13:46)
[2017-08-18] MEDS ORDERED: FERR325T18 PO (13:46)
--- NOTE | 2017-08-18 13:48 | Discharge Instructions ---
Discharge Inst-Women's Serv Depart Medications New, Converted or Re-Newed RX: Transmitted to Pharmacy New Medications: Ibuprofen (Ibuprofen) 600 Mg Tablet 600 MG PO Q8H PRN for PAIN, #60 TAB 0 Refills Ferrous Sulfate (Ferrous Sulfate) 325 Mg Tablet 325 MG PO DAILY@0700, #30 TAB 0 Refills Continued Medications: Cetirizine HCl (All Day Allergy) 10 Mg Tablet 10 MG PO DAILY, TAB Ffv666/Iron Fumarate/FA/Dss ( 19 Tablet) 1 Each Tablet 1 EACH PO, TAB Follow Up/Instructions Goal/Follow Up: Follow up with Dr. Barron in 6 weeks for visit. Patient Instructions: Go to [facility] tomorrow for blood pressure check. Activity Activity: Activity as Tolerated (avoid strenuous activity x 6 weeks) Driving Instructions: You May Drive NO SMOKING: NO SMOKING Nothing Inside Vagina: No Douching, No [place], No Tampons Diet Discharge Diet: Regular Diet Symptoms to Report to : Swelling Increased, Bleeding Excessive, Fever Over 101 Degrees F, Pain/Pressure in Chest, Vaginal Bleeding Increase, Cramps in Feet or Legs, Vaginal Discharge Foul, Wt Gain Consecutive Days, Dizziness/ Fainting, Shortness of Breath For Any Problems or Questions: Contact Your Physician Copies To 1: CLAY BARRON MD, BETHANY N MD Aug 18, 2017 1:48 pm
[2017-08-18 16:15] VITALS: BP 142/108
--- NOTE | 2017-08-18 16:19 | Discharge Summary ---
Diagnosis/Chief Complaint Date of Admission Aug 16, 2017 at 3:50 pm Date of Discharge Aug 18, 2017 Admission Diagnosis Admission Diagnosis Term intrauterine at 39 weeks Preeclampsia with mild features A negative blood type Rubella immune Discharge Diagnosis s/p spontaneous vaginal delivery with first degree perineal laceration repair and bilateral hemostatic periurethral lacerations- routine course Preeclampsia with mild features- blood pressure with occasional 140s/90s after delivery, no treatable. Discharged at 24 hours due to transfer to NICU and recommended she f/u for blood pressure check in clinic next day. A negative blood type- infant O positive, rhogam given Rubella immune anemia- asymptomatic, started iron sulfate daily Chief Complaint/HPI Chief Complaint/HPI 22 yo G1 now P1 at 39w3d sent to hospital for induction due to mild preeclampsia noted at routine visit. Discharge Summary-Simple/Stand Discharge Physical Examination Allergies: Coded Allergies: Sulfa (Sulfonamide Antibiotics) (Verified Allergy, Unknown, RASH, 08/16/17) Vitals & I&Os Vital Sign - Last 12Hours Date Time Temp Pulse Resp B/P (MAP) Pulse Ox O2 Delivery O2 Flow Rate FiO2 08/18/17 11:40 96.9 67 18 142/108 (119) 98 Room Air General Appearance: Alert, No Acute Distress Respiratory: Clear to Auscultation, Normal Air Movement Cardiovascular: Regular Rate, No Murmurs Abdominal: Other (fundus firm below umbilicus) Psych/Mental Status: Mental Status NL Hospital Course See final discharge diagnosis. Labs Laboratory Tests Test 08/16/17 16:55 08/16/17 17:00 08/18/17 05:15 Range/Units White Blood Count 14.5 H 15.1 H 4.3-11.0 10^3/uL Red Blood Count 4.00 L 3.53 L 4.35-5.85 10^6/uL Hemoglobin 10.4 L 9.2 L 11.5-16.0 G/DL Hematocrit 31 L 28 L 35-52 % Mean Corpuscular Volume 79 L 79 L 80-99 FL Mean Corpuscular Hemoglobin 26 26 25-34 PG Mean Corpuscular Hemoglobin Concent 33 33 32-36 G/DL Red Cell Distribution Width 15.5 H 16.0 H 10.0-14.5 % Platelet Count 332 256 130-400 10^3/uL Mean Platelet Volume 9.4 9.1 7.4-10.4 FL Neutrophils (%) (Auto) 74 66 42-75 % Lymphocytes (%) (Auto) 17 24 12-44 % Monocytes (%) (Auto) 8 8 0-12 % Eosinophils (%) (Auto) 2 2 0-10 % Basophils (%) (Auto) 0 0 0-10 % Neutrophils # (Auto) 10.6 H 10.0 H 1.8-7.8 X 10^3 Lymphocytes # (Auto) 2.4 3.6 1.0-4.0 X 10^3 Monocytes # (Auto) 1.1 H 1.1 H 0.0-1.0 X 10^3 Eosinophils # (Auto) 0.4 H 0.3 0.0-0.3 10^3/uL Basophils # (Auto) 0.0 0.0 0.0-0.1 10^3/uL Neutrophils % (Manual) 74 % Lymphocytes % (Manual) 16 % Monocytes % (Manual) 7 % Eosinophils % (Manual) 3 % Basophils % (Manual) 0 % Band Neutrophils 0 % Hypochromasia SLIGHT Microcytosis SLIGHT Sodium Level 139 135-145 MMOL/L Potassium Level 4.4 3.6-5.0 MMOL/L Chloride Level 111 H 98-107 MMOL/L Carbon Dioxide Level 20 L 21-32 MMOL/L Anion Gap 8 5-14 MMOL/L Blood Urea Nitrogen 11 7-18 MG/DL Creatinine 0.66 0.60-1.30 MG/DL Estimat Glomerular Filtration Rate > 60 BUN/Creatinine Ratio 17 Glucose Level 88 70-105 MG/DL Uric Acid 5.8 2.6-7.2 MG/DL Calcium Level 8.7 8.5-10.1 MG/DL Total Bilirubin 0.3 0.1-1.0 MG/DL Aspartate Amino Transf (AST/SGOT) 20 5-34 U/L Alanine Aminotransferase (ALT/SGPT) 19 0-55 U/L Alkaline Phosphatase 111 40-136 U/L Lactate Dehydrogenase 195 125-220 U/L Total Protein 6.2 L 6.4-8.2 GM/DL Albumin 3.0 L 3.2-4.5 GM/DL Urine Protein 56 H 6-12 MG/DL Urine Creatinine 136 H 30-125 MG/DL Urine Protein/Creatinine Ratio 0.41 Discharge Instructions to patient/family Please see electronic discharge instructions given to patient. Discharge Medications Reviewed and agree with Discharge Medication list on patient's Discharge Instruction sheet Clinical Quality Measures DVT/VTE Risk/Contraindication: Risk Factor Score Per Nursin RFS Level Per Nursing on Admit: 1=Low/No VTE PPX Copy Copies To 1: CLAY CLAROS MD, BETHANY N MD Aug 18, 2017 4:19 pm
== END 2017-08-18 16:15 | disposition home or self-care (01) | DRG 775 ==
LOC: LDRP 15:50
PROVIDERS: ADMIT Family Medicine; ATTEND Family Medicine
PROC: 3E0P7GC Introduction of Other Therapeutic Substance into Female Reproductive, Via Natural or Artificial Opening (ICD-10-PCS; 2017-08-16)
PROC: 0HQ9XZZ Repair Perineum Skin, External Approach (ICD-10-PCS; principal; 2017-08-17)
PROC: 10E0XZZ Delivery of Products of Conception, External Approach (ICD-10-PCS; 2017-08-17)
DX: O14.04 Mild to moderate pre-eclampsia, complicating childbirth (principal); O70.0 First degree perineal laceration during delivery; O90.81 Anemia of the puerperium; O26.893 Other specified pregnancy related conditions, third trimester; Z67.11 Type A blood, Rh negative; Z3A.39 39 weeks gestation of pregnancy; Z37.0 Single live birth
CPT/HCPCS: 36415; 80053; 82570; 83033; 83615; 84156; 84550; 85007; 85025; 85027; 86850; 86900; 86901

== ENCOUNTER 2018-10-10 17:34 | Emergency (ER) | payer SELFPAY ==
[~2018-10-10] VITALS: Ht 167.6 cm; Wt 106.6 kg
[~2018-10-10 17:34] MED LIST changes: +CETI10TA4 PO; +FERR325T18 PO; +IBUP-1773 PO
[2018-10-10] MEDS ORDERED: LIDOCAINE/EPI 2% 1:100,00 (XYLOCAINE) 20 ML VIAL ONE (17:56)
--- NOTE | 2018-10-10 17:58 | ED Back Pain ---
General Chief Complaint: Back Problems Stated Complaint: BACK PAIN Nursing Triage Note: Pt ambulates to ED RM 8 with complaints of back pain. Pt states this has been going on for a year but has gotten worse over the last 3 months. Pt reports taking alieve for the pain and got a prednisone shot in her hip, but pain is unrelieved. Nursing Sepsis Screen: No Definite Risk Source of Information: Patient, Family (mom) Exam Limitations: No Limitations History of Present Illness Date Seen by Provider: Oct 10, 2018 Time Seen by Provider: 17:36 Initial Comments The patient presents to the ER by private conveyance with chief complaint of 13 months of low back pain with sciatica starting after delivery of her last child. She says in the past 3 months is progressively gotten worse. She seemed Dr. Simpson. She has tried a single dose of redness around occasionally takes ibuprofen every other day or so Tylenol once or twice a day and uses topical creams, heating pads and has even tried a TENS unit. She has been using the stretching exercises prescribed by her primary care doctor but she says they only make it worse. She went to a chiropractor and they popped her hip that she said it made it flare up and get worse so she did not return. She has not been to physical therapy. She did have x-rays of her back demonstrating what she was told was inflammation in her back and so they put her on cyclobenzaprine for her inflammation which she's been using without success. No history of inciting event or trauma. She's not having falls weakness numbness that she is having tingling running down the back of her right leg. She is not having incontinence of bowel or bladder fevers chills shortness of breath or chest pain. Allergies and Home Medications Allergies Coded Allergies: Sulfa (Sulfonamide Antibiotics) (Verified Allergy, Unknown, RASH, 08/16/17) Home Medications Cetirizine HCl 10 Mg Tablet, 10 MG PO DAILY, (Reported) Ferrous Sulfate 325 Mg Tablet, 325 MG PO DAILY@0700 Prescribed by: CLAY CLAROS on 08/18/17 1346 Ibuprofen 600 Mg Tablet, 600 MG PO Q8H PRN for PAIN Prescribed by: CLAY CLAROS on 08/18/17 1346 Patient Home Medication List Home Medication List Reviewed: Yes Review of Systems Constitutional: No chills EENTM: No ear discharge, No ear pain Respiratory: No cough, No phlegm Cardiovascular: No chest pain, No edema Gastrointestinal: No abdominal pain, No constipation Past Cuogpzk-Qfrdzq-Xsblga Hx Patient Social History Alcohol Use: Denies Use Recreational Drug Use: No Smoking Status: Never a Smoker Recent Foreign Travel: No Contact w/Someone Who Travel: No Recent Infectious Disease Expo: No Recent Hopitalizations: No Immunizations Up To Date Tetanus Booster (TDap): Less than 5yrs PED Vaccines UTD: Yes Seasonal Allergies Seasonal Allergies: Yes Past Medical History Surgeries: Yes Adenoidectomy, Tonsillectomy Respiratory: No Cardiac: No Neurological: No Sexually Transmitted Disease: Yes (chlamydia) HIV/AIDS: No Genitourinary: No Gastrointestinal: No Musculoskeletal: No Endocrine: No HEENT: No Cancer: No Psychosocial: Yes Depression Integumentary: No Blood Disorders: No Adverse Reaction/Blood Tranf: No Family Medical History Arthritis 19 MOTHER G8 BROTHER Diabetes mellitus 19 MOTHER FH: irritable bowel syndrome 19 MOTHER FH: ovarian cancer 19 MOTHER Psychosocial problem 19 MOTHER (depression) Physical Exam Vital Signs Vital Signs - First Documented 10/10/18 17:38 Temp 99.7 Pulse 129 Resp 20 B/P (MAP) 150/106 (121) Pulse Ox 98 O2 Delivery Room Air Capillary Refill : Less Than 3 Seconds Height, Weight, BMI Height: 5'6.00" Weight: 235lbs. 2.0oz. [id number]; 38.5 BMI Method:Stated General Appearance: Mild Distress, Obese HEENT: Pharynx Normal, Moist Mucous Membranes Neck: Full Range of Motion, Normal Inspection Cardiovascular: Regular Rate, Rhythm, No Edema, Normal Peripheral Pulses Respiratory: No Accessory Muscle Use, No Respiratory Distress Peripheral Pulses: 2+ Radial Pulses (R), 2+ Radial Pulses (L) Gastrointestinal: Normal Bowel Sounds, Non Tender, Soft Back: Normal Inspection, Vertebral Tenderness (lumbar and right para vertebral lumbar spinous tenderness to palpation. Re-creates sciatic symptoms over direct palpation of the L5-S1 facet joint.) Extremity: Normal Capillary Refill, Normal Inspection Neurologic/Psychiatric: Alert, Oriented x3, No Motor/Sensory Deficits, Other (deep tendon reflexes of the patella bilateral 2 out of 4 symmetric.) Procedures/Interventions Progress Risks, benefits and alternatives were explained the patient and then the patient accepted the risks verbally. We clean the site using Betadine and then call them with alcohol. Then used a 1/2 inch 27-gauge needle with 2 cc of 2% lidocaine with epinephrine and 2 cc of half percent Marcaine without epinephrine mixed with 40 mg of Depo-Medrol. We ascertain the site of the L5-S1 facet joint and inserted the needle using Z track method. Injected the medicine and after removing clean it with alcohol and put a Band-Aid on it. Patient tolerated the procedure well. Progress/Results/Core Measures Results/Orders My Orders Orders - PACHECO MAJOR Methylprednisolone Acetate Inj (Depo-Med (10/10/18 18:00) Bupivacaine 0.5% Injection (Sensorcaine (10/10/18 18:00) Lidocaine/Epi Mpf 2% 1:200,000 (Xylocain (10/10/18 18:00) Ketorolac Injection (Toradol Injection) (10/10/18 18:00) Lidocaine/Epi 2% 1:100,000 (Xylocaine/Ep (10/10/18 17:56) Medications Given in ED Current Medications Medications Dose Ordered Sig/Kyle Route Start Time Stop Time Status Last Admin Dose Admin Bupivacaine HCl 30 ml ONCE ONCE INJ 10/10/18 18:00 10/10/18 18:01 DC 10/10/18 18:07 30 ML Ketorolac Tromethamine 60 mg ONCE ONCE IM 10/10/18 18:00 10/10/18 18:01 DC 10/10/18 18:05 60 MG Lidocaine/ Epinephrine 20 ml STK-MED ONCE .ROUTE 10/10/18 17:56 10/10/18 18:04 DC 10/10/18 18:07 20 ML Methylprednisolone Acetate 40 mg ONCE ONCE IA 10/10/18 18:00 10/10/18 18:01 DC 10/10/18 18:08 40 MG Vital Signs/I&O 10/10/18 17:38 Temp 99.7 Pulse 129 Resp 20 B/P (MAP) 150/106 (121) Pulse Ox 98 O2 Delivery Room Air Blood Pressure Mean: 121 Progress Progress Note : Time: 17:57 Progress Note Steroid injection, lidocaine and Marcaine block of the sciatic nerve and put her on scheduled NSAIDs for the next 2 weeks with follow-up outpatient. Departure Impression Primary Impression: Lumbago with sciatica, right side Qualified Codes: M54.41 - Lumbago with sciatica, right side; G89.29 - Other chronic pain Disposition: 01 HOME, SELF-CARE Condition: Stable Departure-Patient Inst. Decision time for Depature: 18:17 Referrals: [facility] (PCP) Primary Care Physician WESTLEY SIMPSON APRN (Family) Primary Care Physician Patient Instructions: Low Back Pain (DC) Add. Discharge Instructions: supervisor order takers a back brace and wear it on all the days that your back hurts. Use topical creams. Tylenol 1000 mg every 8 hours as necessary for back pain. Start taking the Naprosyn 500 mg tablet twice a day on a schedule for the next 2 weeks. You may also tack picker [id number] and take 2 tablets twice daily for a similar effect. Do not use ibuprofen or Aleve or Advil with the Naprosyn. Stay active and follow-up with primary care in the next 2-4 weeks. All discharge instructions reviewed with patient and/or family. Voiced understanding. Scripts Naproxen (Naprosyn) 500 Mg Tablet 500 MG PO BID for 14 Days, #30 TAB 0 Refills Prov: PACHECO MAJOR 10/10/18 PACHECO MAJOR Oct 10, 2018 17:58
[2018-10-10] MEDS ORDERED: KETOROLAC 30 MG/ML VIAL IM ONE (18:00)
[2018-10-10] MEDS ORDERED: methylPREDNISolone 40 MG/ML (DEPO MEDROL) VIAL IA ONE (18:00)
[2018-10-10] MEDS ORDERED: BUPIVACAINE 0.5% 30 ML (SENSORCAINE) VIAL INJ ONE (18:00)
[2018-10-10] MEDS ORDERED: LIDOCAINE/EPI 2% 1:200,00 (XYLOCAINE) 10 ML VIAL INJ ONE (18:00)
[2018-10-10] MEDS ORDERED: NAPR-1071 PO (18:19)
[2018-10-10 18:27] VITALS: BP 119/87
== END 2018-10-10 18:27 | disposition home or self-care (01) ==
LOC: EDUNIT# 17:34 → ER 17:35
DX: M54.41 Lumbago with sciatica, right side (principal); F32.9 Major depressive disorder, single episode, unspecified; Z88.2 Allergy status to sulfonamides; Z90.89 Acquired absence of other organs; Z80.8 Family history of malignant neoplasm of other organs or systems
CPT/HCPCS: 99284

== ENCOUNTER 2020-10-20 21:07 | Emergency (ER) | payer SELFPAY ==
[~2020-10-20] VITALS: Ht 165.1 cm; Wt 111.0 kg
[~2020-10-20 21:07] MED LIST changes: -CLIN300C11 PO; +CLIN300C12 PO; +NAPR-1071 PO; -SULF1TAB35 PO; +SULF1TAB38 PO
[2020-10-20 21:16] VITALS: BP 131/88
--- NOTE | 2020-10-20 21:37 | ED Lower Extremity ---
General Chief Complaint: Lower Extremity Stated Complaint: R FOOT INJ Nursing Triage Note: c/o right 5th toe swelling/bruising/pain after stubbing toe 10/19/20 Source: patient Exam Limitations: no limitations (NATALIIA CINTRON) History of Present Illness Date Seen by Provider: Oct 20, 2020 Time Seen by Provider: 21:25 Initial Comments Pt presents to ED via POV with complaiint of R 5th toe pain. She states that yesterday she was in her bathroom and stubbed her R 5th toe in a corner. She complains of 6/10 throbbing pain to her toe, worse with mov ement/touch/weightbearing, minimal improvement with elevation. She has been taking 3x Tylenol unknown dose, last dose 6hrs ago with minimal improvement, denies current need for pain medication. Denies associated symptoms of chest pain, SOB, N/V, fevers, chills. Onset: yesterday Severity: moderate Pain/Injury Location: right 5th toe Method of Injury: other (stubbed toe in bathroom) Modifying Factors: Improves With Immobilization; Worse With Movement; Improves With Pain Medication (minimal relief with acetaminophen), Improves With Rest (NATALIIA CINTRON) Allergies and Home Medications Allergies Coded Allergies: Sulfa (Sulfonamide Antibiotics) (Verified Allergy, Unknown, RASH, 08/16/17) Patient Home Medication List Home Medication List Reviewed: Yes (NATALIIA CINTRON) Review of Systems Constitutional: No chills, No fever EENTM: No hearing loss, No vision loss Respiratory: No cough, No short of breath Cardiovascular: No chest pain, No edema Gastrointestinal: No abdominal pain, No constipation, No diarrhea Genitourinary: No dysuria, No frequency, No hematuria Musculoskeletal: No back pain; other (pain/swelling/ecchymosis to R 5th toe, limited plantar/dorsiflexion R lateral toes) Skin: change in color (ecchymosis to dorsal aspect of R 5th toe); No change in hair/nails (NATALIIA CINTRON) All Other Systems Reviewed Negative Unless Noted: Yes (NATALIIA CINTRON) Past Vtdbbwk-Nsxoip-Kprzab Hx Patient Social History Tobacco Use?: No Use of E-Cig and/or Vaping dev: No Substance use?: No Alcohol Use?: No Pt feels they are or have been: No (NATALIIA CINTRON STUDENT) Immunizations Up To Date Tetanus Booster (TDap): Less than 5yrs PED Vaccines UTD: Yes (NATALIIA CINTRON STUDENT) Seasonal Allergies Seasonal Allergies: Yes (NATALIIA CINTRON) Past Medical History Surgery/Hospitalization HX: denies Surgeries: Yes Adenoidectomy, Tonsillectomy Respiratory: No Cardiac: No Neurological: No Last Menstrual Period: Sep 16, 2020 Sexually Transmitted Disease: Yes (chlamydia) HIV/AIDS: No Genitourinary: No Gastrointestinal: No Musculoskeletal: No Endocrine: No HEENT: No Cancer: No Psychosocial: Yes Depression Integumentary: No Blood Disorders: No Adverse Reaction/Blood Tranf: No (NATALIIA CINTRON STUDENT) Family Medical History Arthritis 19 MOTHER G8 BROTHER Diabetes mellitus 19 MOTHER FH: irritable bowel syndrome 19 MOTHER FH: ovarian cancer 19 MOTHER Psychosocial problem 19 MOTHER (depression) Physical Exam Vital Signs Vital Signs - First Documented 10/20/20 21:16 Temp 36.9 Pulse 80 Resp 18 B/P (MAP) 131/88 (102) Pulse Ox 99 O2 Delivery Room Air (PACHECO MAJOR) Vital Signs Capillary Refill : Less Than 3 Seconds (NATALIIA CINTRON STUDENT) Height, Weight, BMI Height: 5'6.00" Weight: 235lbs. 2.0oz. [id number]; 40.00 BMI Method:Stated General Appearance: WD/WN, no apparent distress HEENT: PERRL/EOMI, normal ENT inspection, pharynx normal Neck: non-tender, full range of motion, supple, normal inspection Cardiovascular: normal peripheral pulses, regular rate, rhythm, no murmur Respiratory: chest non-tender, lungs clear, normal breath sounds, no respiratory distress, no accessory muscle use Gastrointestinal: normal bowel sounds, non tender, soft Back: normal inspection, no CVA tenderness, no vertebral tenderness Hips: bilateral hip non-tender, bilateral hip normal inspection, bilateral hip normal range of motion, bilateral hip no evidence of injury Legs: bilateral leg non-tender, bilateral leg normal inspection, bilateral leg normal range of motion, bilateral leg no evidence of injury Knees: bilateral knee non-tender, bilateral knee normal inspection, bilateral knee normal range of motion, bilateral knee no evidence of injury Ankles: bilateral ankle non-tender, bilateral ankle normal inspection, bilateral ankle normal range of motion, bilateral ankle no evidence of injury Feet: left foot non-tender, left foot normal inspection, left foot normal range of motion, left foot no evidence of injury; right foot other (R 5th toe swelling, ecchymosis, tender to touch, limited ROM) Reflexes: 2+ ankle (R), 2+ ankle (L) Neurologic/Tendon: normal sensation, normal tendon functions, responds to pain Neurologic/Psychiatric: no motor/sensory deficits, alert, normal mood/affect, oriented x 3 Skin: warm/dry, ecchymosis (1x2cm dorsal R 5th toe) Lymphatic: no adenopathy (NATALIIA CINTRON MED STUDENT) Progress/Results/Core Measures Results/Orders Vital Signs/I&O 10/20/20 21:16 Temp 36.9 Pulse 80 Resp 18 B/P (MAP) 131/88 (102) Pulse Ox 99 O2 Delivery Room Air (PACHECO MAJOR) Blood Pressure Mean: 102 Progress Progress Note : Time: 21:50 Progress Note I attest that I saw this 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 Bosteven rice therapy and follow-up outpatient with podiatry or orthopedics. 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 No intra-articular extension is evident. There is surrounding soft tissue swelling. Joint spaces are preserved. No other fractures are seen in the right foot. IMPRESSION: 1. Right 5th toe proximal phalangeal fracture. Dictated on workstation # [id number] Dict: 10/20/202157 Trans: 10/20/202203 [facility] [id number] Interpreted by: HEATHER HOUSER MD Electronically signed by: Reviewed: Reviewed by Me (PACHECO MAJOR) Departure Impression Primary Impression: Fracture of fifth toe, right, closed Qualified Codes: S92.501A - Displaced unspecified fracture of right lesser toe(s), initial encounter for closed fracture Disposition: 01 HOME, SELF-CARE Condition: Stable Departure-Patient Inst. Decision time for Depature: 21:54 (PACHECO MAJOR) Referrals: [facility] (PCP) Primary Care Physician WESTLEY FERNANDEZ APRN (Family) Primary Care Physician CARMELITA NUNES MD Patient Instructions: Toe Fracture (DC) Add. Discharge Instructions: Wear the boot for the next 2 weeks except to sleep 5 days. Crutches as necessary for the next week or 2. Weightbearing as tolerated. Tylenol 1000 mg every 8 hours as necessary for pain. Ibuprofen 800 mg every 8 hours necessary for pain. Rest your foot when not necessary to be on it. Elevate above the level of your heart to reduce swelling and pain. Ice for 20 minutes every 2 hours while awake for the first 2 to 3 days. Follow-up with the orthopedic surgeon or computer lab para professional of your choice in 7 to 10 days. All discharge instructions reviewed with patient and/or family. Voiced understanding. Copy Copies To 1: CARMELITA NUNES MD, JOHNNY MED STUDENT Oct 20, 2020 21:36 PACHECO MAJOR Oct 20, 2020 21:55
--- NOTE | 2020-10-20 22:04 | Diagnostic Imaging Report ---
HISTORY: Right 5th toe pain TECHNIQUE: 3 views of the right foot COMPARISON: None FINDINGS: There is an oblique, mildly laterally angulated and displaced fracture of the right 5th toe proximal phalangeal shaft. No intra-articular extension is evident. There is surrounding soft tissue swelling. Joint spaces are preserved. No other fractures are seen in the right foot. IMPRESSION: 1. Right 5th toe proximal phalangeal fracture. Dictated by: Dictated on workstation # [id number]
== END 2020-10-20 22:12 | disposition home or self-care (01) ==
LOC: EDUNIT# 21:07 → ER 21:09
DX: S92.511A Displaced fracture of proximal phalanx of right lesser toe(s), initial encounter for closed fracture (principal); W22.8XXA Striking against or struck by other objects, initial encounter
CPT/HCPCS: 73630